=== PATIENT | female | born 1990 | race Caucasian/White ===

== ENCOUNTER 2021-04-27 07:35 | Emergency (ER) | payer OTHER, SELFPAY ==
--- NOTE | ~2021-04-27 | CT_ITS ---
EXAMINATION: CT ANGIOGRAM OF THE CHEST WITH AND WITHOUT CONTRAST (CT PULMONARY ANGIOGRAM FOR PE) CLINICAL INFORMATION: Reason for Exam right sided pleuritic cp, r/o pe COMPARISON: None TECHNIQUE: Prior to contrast administration, noncontrast localization images were obtained. Subsequently, multidetector volumetric imaging was performed from the thoracic inlet to below the diaphragms following the administration of 65 mL Omnipaque 350 intravenous contrast. No contrast reaction reported Sagittal, coronal, and MIP oblique sagittal reformatted images were obtained on the CT workstation, uploaded to PACS, and reviewed. This CT examination was performed using dose optimization techniques as appropriate, variously including the following: *Automated exposure control *Adjustment of mA and/or kV according to patient size (this includes techniques or standardized protocols for targeted exams where dose is matched to indication/reason for exam; i.e. extremities or head) *Use of iterative reconstruction technique Total exam dose-length product 187 mGy-cm FINDINGS: QUALITY OF STUDY/CONTRAST BOLUS: Satisfactory. PULMONARY ARTERIES: No central or segmental pulmonary emboli. THORACIC AORTA: No aneurysm or dissection. LUNG: No focal consolidation, nodules or masses. Mild posterior dependent right basilar atelectasis. PLEURA: No pleural effusion or pneumothorax. MEDIASTINUM: Normal heart size. No pericardial effusion. No hilar or mediastinal lymphadenopathy. No evidence of septal bowing or right heart strain. CHEST WALL/AXILLA: No axillary or internal mammary lymphadenopathy. OSSEOUS STRUCTURES: No acute or suspicious osseous abnormality. UPPER ABDOMEN: Unremarkable. No reflux of contrast into the hepatic veins to suggest elevated right heart pressures. CT/CT angio chest PE protocol IMPRESSION: No pulmonary embolism. VTE: negative
--- NOTE | ~2021-04-27 | US_ITS ---
EXAMINATION: US ABDOMEN LIMITED CLINICAL INFORMATION: Right upper quadrant pain. COMPARISON: None TECHNIQUE: Real-time imaging of the right upper quadrant abdominal viscera. FINDINGS: PANCREAS: The visualized portion of the pancreas head and body are normal, portion of the pancreatic body and tail, not visualized are obscured by bowel gas. LIVER: Normal. The liver is normal in size. The liver contour is normal. Parenchymal echogenicity is normal. No focal hepatic lesion. There is no intrahepatic biliary duct dilatation seen. GALLBLADDER: Normal. The gallbladder is physiologically distended without evidence of stones, sludge, polyps, wall thickening or pericholecystic fluid. COMMON BILE DUCT: Normal in caliber measuring 0.3 cm in diameter. RIGHT KIDNEY: Normal. No hydronephrosis. No renal calculi or focal parenchymal lesions. The kidney measures 11.2 cm in maximum dimension. FREE FLUID: None. US/US abdomen limited IMPRESSION: No ultrasound evidence of gallbladder disease or gallstones, no ultrasound explanation for patient's pain symptoms.
--- NOTE | ~2021-04-27 | XR_ITS ---
EXAMINATION: XR CHEST CLINICAL INFORMATION: Right chest wall/breast pain COMPARISON: None TECHNIQUE: 2 views of the chest were obtained. FINDINGS: No focal consolidation, pulmonary edema, or pleural effusion. Normal cardiomediastinal silhouette. XR/XR chest 2V IMPRESSION: Normal chest.
[2021-04-27 08:10] VITALS: BP 131/74; PULSE 84; RESP 16; TEMP 36.9; O2SAT 100; BMI 26.7
--- NOTE | 2021-04-27 08:18 | ECG_ITS ---
Test Reason : CP Blood Pressure : / mmHG Vent. Rate : 072 BPM Atrial Rate : 072 BPM P-R Int : 146 ms QRS Dur : 084 ms QT Int : 368 ms P-R-T Axes : 074 061 043 degrees QTc Int : 402 ms Normal sinus rhythm Normal ECG No previous ECGs available Referred By: Monique Antony Electronically Signed By:RAKESH DIXON
--- NOTE | 2021-04-27 08:34 | ED.CHESTPAIN ---
HPI - Chest Pain General Chief Complaint: Chest Pain Stated Complaint: FLANK PAIN Time Seen by Provider: 04/27/21 08:18 Source: patient Mode of arrival: ambulatory Limitations: no limitations History of Present Illness HPI narrative: 31 yo female previously Healthy here with complaints of right upper abdominal pain/right chest pain since last evening. Pain is worsened with deep breathing and movement. No shortness of breath, cough, fevers, chills. No leg swelling or pain. No OCP use. No recent travel or sick contacts. No family history of PE or DVT. No nausea, vomiting, diarrhea or urinary symptoms. Related Data Previous Rx's Medication Instructions Recorded omeprazole 20 mg PO DAILY #30 cap 04/27/21 Allergies Allergy/AdvReac Type Severity Reaction Status Date / Time Penicillins Allergy Mild RASH Unverified 07/04/20 17:16 Review of Systems Review of Systems: Yes all other systems are reviewed and are negative Constitutional: Constitutional: Reports no additional constitutional complaints, Denies body ache(s), Denies chills, Denies fever(s), Denies headache(s) and Denies weakness Eyes: Eyes: Reports no additional eye complaints and Denies change in vision ENT: Reports system reviewed and no additional complaints, except as documented, Denies dizziness, Denies headache(s), Denies nasal congestion, Denies nasal discharge and Denies neck pain Cardiovascular: Cardiovascular: Reports no additional cardiovascular complaints, Reports chest pain, Denies leg edema and Denies dyspnea Respiratory: Respiratory: Reports no additional respiratory complaints, Denies cough and Denies dyspnea Gastrointestinal: Gastrointestinal: Reports no additional gastrointestinal complaints, Reports abdominal pain, Denies diarrhea, Denies nausea and Denies vomiting Genitourinary: Genitourinary: Reports no additional female genitourinary complaints and Denies urinary incontinence Musculoskeletal: Musculoskeletal: Reports no additional musculoskeletal complaints, Denies back pain, Denies arthralgias, Denies joint swelling, Denies neck pain, Denies numbness and Denies tingling Integumentary/Breasts: Skin/Breast: Reports system reviewed and no additional complaints, except as docu and Denies rash Neurologic: Reports system reviewed and no additional complaints, except as documented, Denies Abnormal speech present, Denies dizziness, Denies headache(s), Denies numbness, Denies tingling and Denies weakness [facility] Past Medical History Attestation statement: The following information was validated with the patient. Source: old records reviewed and nursing notes reviewed Medical History No known health problems Social History Social History Alcohol intake: never Patient Tobacco Use Status: Never used Tobacco Use of substances other than those prescribed or required for medical reasons: Yes Substance Use Type: Marijuana Substance Use Frequency: Daily Substance Use Frequency Other:: yesterday Advance Directives: Yes Advance Directives Information Provided: Yes Advance Directives on File: No Patient : No Physical Exam Vital Signs: Vital Signs: Last Vital Signs Temp 97.6 F 04/27/21 12:31 Pulse 80 04/27/21 12:31 Resp 18 04/27/21 12:31 BP 105/63 04/27/21 12:31 Pulse Ox 100 04/27/21 12:31 Body Mass Index 26.7 Const: General: cooperative, healthy appearing, comfortable and no acute distress Orientation/consciousness: patient oriented x3 Limitations: no limitations HENMT: Head: Yes normal to inspection Ears: hearing grossly normal bilaterally General nose exam: Normal external nose present Face and sinus: Yes normal facial exam Mouth: Normal oral and palatal mucosa present Throat: Yes posterior oropharynx normal Eyes: General: appearance normal, both eyes and all related structures Pupils: Equal, round and reactive pupils present Neck: Neck: Yes normal visual inspection Chest: Other: To the right chest wall and over the right lateral ribs there is mild tenderness with no crepitus, ecchymosis or deformity. Pain is worsened with right arm movement and palpation and deep breathing. Chest palpation & inspection: normal inspection of the chest Resp: Effort & Inspection: normal respiratory effort Auscultation: clear to auscultation bilaterally Cardio: Rate: regular rate Rhythm: regular rhythm Peripheral pulses: Peripheral pulses 2+ throughout GI: Inspection: Yes normal to inspection Palpation (GI): Soft to palpation and Tenderness to palpation present (GI) (Mild right upper quadrant. No rebound or guarding) Auscultation: normal bowel sounds : General: Yes no CVA tenderness Back/Spine/Pelvis: Back: no CVA tenderness Thoracic/Lumbar Spine: thoracic and lumbar spine normal to inspection Skin: General skin exam: no rashes or lesions noted Neuro: General: patient oriented x3, no focal motor deficits and normal sensation to monofilament Cranial nerves: Yes Equal, round and reactive pupils present Cognition (Neuro): normal cognition Speech: No Abnormal speech present Gait exam (Neuro): Normal gait present Motor exam (neuro): 5/5 motor strength present throughout Extrem: General: Yes normal to inspection, Yes no pedal edema and Yes no calf tenderness Course Course Course Narrative: 31-year-old female here with complaints of right-sided chest wall pain and right upper abdominal pain since last evening with no other associated symptoms. On exam she does have some tenderness over the chest wall which is very reproducible as well as some right upper quadrant abdominal pain with no rebound or guarding. Will check labs, EKG, chest x-ray, abdominal ultrasound 1000-chest x-ray shows no acute finding. EKG and troponin negative. Abdominal ultrasound negative for acute cholecystitis. All other labs are unremarkable. UA is negative. She does have a mild leukocytosis but this actually improved from her previous CBC. Went to re-evaluate the patient and she is continuing to complain of severe right sided chest pain worsened with deep breathing. States feels like gas. Add on d dimer, GI cocktail. 1100-unfortunately the patient's D-dimer is elevated. Will check CTA to r/o PE. 1245-CT negative for PE. Patient is feeling improved after receiving a GI cocktail. All symptoms are resolved. Likely chest wall strain versus underlying GERD. Will send home with supportive care. Reviewed worrisome signs and symptoms and when to return to the emergency department. Comfortable discharge home. MDM - Chest Pain MDM Narrative Medical decision making narrative: Costochondritis, chest wall strain, PE, acute cholecystitis, renal colic, pyelo Less likely PE With PERC score 0. Medical Records Data Attestation: I reviewed the patient's medical records. Lab Data Attestation: I reviewed the patient's lab results. Result diagrams: 04/27/21 09:14 04/27/21 09:14 Labs: Lab Results 04/27/21 04/27/21 04/27/21 Range/Units 09:14 09:14 09:14 WBC 13.8 H (4.8-10.8) X10*3/uL RBC 3.60 L (4.20-5.50) X10*6/uL Hgb 10.8 L (12.0-16.0) g/dl Hct 34.2 L (37-47) % MCV 95.0 (80-98) fL MCH 30.0 (27.0-33.0) pg MCHC 31.6 (31.0-35.0) g/dl RDW 12.3 (11.0-16.0) % Plt Count 285 (160-400) X10*3/uL MPV 9.7 (9.4-12.3) fL Immature Gran % (Auto) 0.4 (0.0-0.4) % Neut % (Auto) 75.7 H (45-73) % Lymph % (Auto) 16.4 L (20-40) % [place] % (Auto) 6.4 (2-11) % Eos % (Auto) 0.7 (0-4) % Baso % (Auto) 0.4 (0-2) % Lymph # (Auto) 2.3 (1.2-4.9) X10*3/uL [place] # (Auto) 0.9 (0.1-1.2) X10*3/uL Eos # (Auto) 0.1 (0.0-0.4) X10*3/uL Baso # (Auto) 0.1 (0.0-0.2) X10*3/uL Abs Immat Gran (auto) 0.05 H (0.00-0.03) X10*3/uL Absolute Neuts (auto) 10.5 H (2.0-8.3) X10*3/uL Absolute Nucleated RBC 0.000 (0.0-0.012) X10*3/uL Nucleated RBC % (auto) 0.0 (0.0-0.2) /100WBC PT (9.9-13.0) SEC INR (0.9-1.1) D-Dimer NG/ML Sodium 139 (135-145) mmol/L Potassium 4.1 (3.3-5.1) mmol/L Chloride 108 (96-108) mmol/L Carbon Dioxide 23 (22-29) mmol/L Anion Gap 12 (12-20) BUN 12 (9-16) mg/dL Creatinine 0.73 (0.5-1.4) mg/dL Estim Creat Clear Calc 107.7 Estimated GFR > 60 Random Glucose 98 (60-115) mg/dL Calcium 9.3 (8.4-10.2) mg/dL Magnesium 1.7 (1.6-2.6) mg/dL Total Bilirubin 0.4 (0.0-1.0) mg/dL Direct Bilirubin 0.2 (0.0-0.5) mg/dL AST 13 (5-31) U/L ALT 6 (0-31) U/L Alkaline Phosphatase 75 (39-117) U/L Troponin I High Sens < 3.5 (<3.5-17.0) ng/L Total Protein 7.1 (6.5-8.0) g/dL Albumin 4.2 (3.5-5.0) g/dL Urine Color Urine Appearance Urine pH (5.0-8.0) Ur Specific [place] (1.005-1.025) Urine Protein (NEG-TRACE) MG/DL Urine Glucose (UA) (NEG) MG/DL Urine Ketones (NEG) MG/DL Urine Blood (NEG) Urine Nitrite (NEG) Ur Leukocyte Esterase (NEG) Urine RBC (0) /HPF Urine WBC (0-4) /HPF Ur Squamous Epith Cells /LPF Urine Bacteria /LPF Urine Test (NEGATIVE) 04/27/21 04/27/21 04/27/21 Range/Units 09:14 09:14 10:28 WBC (4.8-10.8) X10*3/uL RBC (4.20-5.50) X10*6/uL Hgb (12.0-16.0) g/dl Hct (37-47) % MCV (80-98) fL MCH (27.0-33.0) pg MCHC (31.0-35.0) g/dl RDW (11.0-16.0) % Plt Count (160-400) X10*3/uL MPV (9.4-12.3) fL Immature Gran % (Auto) (0.0-0.4) % Neut % (Auto) (45-73) % Lymph % (Auto) (20-40) % [place] % (Auto) (2-11) % Eos % (Auto) (0-4) % Baso % (Auto) (0-2) % Lymph # (Auto) (1.2-4.9) X10*3/uL [place] # (Auto) (0.1-1.2) X10*3/uL Eos # (Auto) (0.0-0.4) X10*3/uL Baso # (Auto) (0.0-0.2) X10*3/uL Abs Immat Gran (auto) (0.00-0.03) X10*3/uL Absolute Neuts (auto) (2.0-8.3) X10*3/uL Absolute Nucleated RBC (0.0-0.012) X10*3/uL Nucleated RBC % (auto) (0.0-0.2) /100WBC PT 11.9 (9.9-13.0) SEC INR 1.0 (0.9-1.1) D-Dimer 269 NG/ML Sodium (135-145) mmol/L Potassium (3.3-5.1) mmol/L Chloride (96-108) mmol/L Carbon Dioxide (22-29) mmol/L Anion Gap (12-20) BUN (9-16) mg/dL Creatinine (0.5-1.4) mg/dL Estim Creat Clear Calc Estimated GFR Random Glucose (60-115) mg/dL Calcium (8.4-10.2) mg/dL Magnesium (1.6-2.6) mg/dL Total Bilirubin (0.0-1.0) mg/dL Direct Bilirubin (0.0-0.5) mg/dL AST (5-31) U/L ALT (0-31) U/L Alkaline Phosphatase (39-117) U/L Troponin I High Sens (<3.5-17.0) ng/L Total Protein (6.5-8.0) g/dL Albumin (3.5-5.0) g/dL Urine Color YELLOW Urine Appearance HAZY Urine pH 6.0 (5.0-8.0) Ur Specific [place] 1.020 (1.005-1.025) Urine Protein NEG (NEG-TRACE) MG/DL Urine Glucose (UA) NEG (NEG) MG/DL Urine Ketones NEG (NEG) MG/DL Urine Blood 3+ H (NEG) Urine Nitrite NEG (NEG) Ur Leukocyte Esterase NEG (NEG) Urine RBC 50-75 H (0) /HPF Urine WBC 0-2 (0-4) /HPF Ur Squamous Epith Cells TRACE /LPF Urine Bacteria NONE /LPF Urine Test NEGATIVE (NEGATIVE) Imaging Data Chest x-ray: Attestation: I personally reviewed and interpreted this imaging study as follows: Radiologist's impression: EXAMINATION: XR CHEST CLINICAL INFORMATION: Right chest wall/breast pain COMPARISON: None TECHNIQUE: 2 views of the chest were obtained. FINDINGS: No focal consolidation, pulmonary edema, or pleural effusion. Normal cardiomediastinal silhouette. XR/XR chest 2V IMPRESSION: Normal chest. US - abdomen: Attestation: I personally reviewed and interpreted this imaging study as follows: Radiologist's impression: FINDINGS: PANCREAS: The visualized portion of the pancreas head and body are normal, portion of the pancreatic body and tail, not visualized are obscured by bowel gas. LIVER: Normal. The liver is normal in size. The liver contour is normal. Parenchymal echogenicity is normal. No focal hepatic lesion. There is no intrahepatic biliary duct dilatation seen. GALLBLADDER: Normal. The gallbladder is physiologically distended without evidence of stones, sludge, polyps, wall thickening or pericholecystic fluid. COMMON BILE DUCT: Normal in caliber measuring 0.3 cm in diameter. RIGHT KIDNEY: Normal. No hydronephrosis. No renal calculi or focal parenchymal lesions. The kidney measures 11.2 cm in maximum dimension. FREE FLUID: None. US/US abdomen limited IMPRESSION: No ultrasound evidence of gallbladder disease or gallstones, no ultrasound explanation for patient's pain symptoms. CT scan - chest: Attestation: I personally reviewed and interpreted this imaging study as follows: Radiologist's impression: FINDINGS: QUALITY OF STUDY/CONTRAST BOLUS: Satisfactory. PULMONARY ARTERIES: No central or segmental pulmonary emboli. THORACIC AORTA: No aneurysm or dissection. LUNG: No focal consolidation, nodules or masses. Mild posterior dependent right basilar atelectasis. PLEURA: No pleural effusion or pneumothorax. MEDIASTINUM: Normal heart size. No pericardial effusion. No hilar or mediastinal lymphadenopathy. No evidence of septal bowing or right heart strain. CHEST WALL/AXILLA: No axillary or internal mammary lymphadenopathy. OSSEOUS STRUCTURES: No acute or suspicious osseous abnormality. UPPER ABDOMEN: Unremarkable. No reflux of contrast into the hepatic veins to suggest elevated right heart pressures. CT/CT angio chest PE protocol IMPRESSION: No pulmonary embolism. VTE: negative ECG Data ECG #1: Attestation: I personally reviewed and interpreted this ECG as follows: ECG interpretation date: 04/27/21 ECG interpretation time: 08:40 Interpretation: Normal sinus rhythm with a rate of 72, normal MS, normal QRS, normal QT Discharge Plan Discharge Clinical Impression: GERD without esophagitis Chest wall muscle strain Qualifiers: Encounter type: initial encounter Qualified Code(s): S29.011A - Strain of muscle and tendon of front wall of thorax, initial encounter Patient Disposition: Home, Self-Care Instructions: Gastroesophageal Reflux Disease (ED), Chest Wall Pain (ED) Additional Instructions: [place] diet Prescriptions: New omeprazole 20 mg capsule,delayed release(DR/EC) 20 mg PO DAILY Qty: 30 RF: 0 Referrals: Brian Paul MD [Primary Care Provider] - 2 days Stand Alone Forms: Work/School Release
[2021-04-27 09:19] LABS: MANUAL DIFF FLAG NO
[2021-04-27 09:20] LABS: Basophils Absolute Auto 0.1 X10*3/uL (0.0-0.2); Basophils Percent Auto 0.4 % (0-2); Eosinophils Absolute Auto 0.1 X10*3/uL (0.0-0.4); Eosinophils Percent Auto 0.7 % (0-4); Hematocrit 34.2 % (37-47); Hemoglobin 10.8 g/dl (12.0-16.0); Imm Gran Abs Auto 0.05 X10*3/uL (0.00-0.03); Imm Gran Pct Auto 0.4 % (0.0-0.4); Lymphocytes Absolute Auto 2.3 X10*3/uL (1.2-4.9); Lymphocytes Percent Auto 16.4 % (20-40); Mean Corpuscular HGB Conc 31.6 g/dl (31.0-35.0); Mean Platelet Volume 9.7 fL (9.4-12.3); Monocytes Absolute Auto 0.9 X10*3/uL (0.1-1.2); Monocytes Percent Auto 6.4 % (2-11); Neutrophils Absolute Auto 10.5 X10*3/uL (2.0-8.3); Neutrophils Percent Auto 75.7 % (45-73); Platelet Count 285 X10*3/uL (160-400); Red Cell Distribution Width 12.3 % (11.0-16.0); White Blood Count 13.8 X10*3/uL (4.8-10.8)
[2021-04-27 09:21] LABS: Glucose Urine UA NEG (NEG); Leukocyte Esterase Urine NEG (NEG); Nitrite Urine NEG (NEG); Urine Blood 3+ (NEG); Urine Ketones NEG (NEG); Urine Protein NEG (NEG-TRACE)
[2021-04-27 09:22] LABS: Appearance Urine HAZY; Color Urine YELLOW
[2021-04-27 09:23] LABS: UPreg QC Valid YES; Urine Pregnancy NEGATIVE (NEGATIVE)
[2021-04-27 09:27] VITALS: PULSE 78
[2021-04-27 09:28] LABS: RBC Urine 50-75 /HPF (0); Squamous Epithelial Cell Urine TRACE /LPF; WBC Urine 0-2 /HPF (0-4)
[2021-04-27] MEDS: Ketorolac Tromethamine 30 MG/ML VIAL IVPUSH (09:32)
[2021-04-27 09:43] LABS: Alanine Aminotransferase 6 U/L (0-31); Albumin Level 4.2 g/dL (3.5-5.0); Alkaline Phosphatase 75 U/L (39-117); Anion Gap 12 (12-20); Aspartate Amino Transferase 13 U/L (5-31); Bilirubin Direct 0.2 mg/dL (0.0-0.5); Bilirubin Total 0.4 mg/dL (0.0-1.0); Blood Urea Nitrogen 12 mg/dL (9-16); Calcium 9.3 mg/dL (8.4-10.2); Carbon Dioxide 23 mmol/L (22-29); Chloride 108 mmol/L (96-108); Creatinine Clr Calc Pharmacy 107.7; Estimated Glomerular Filt Rate > 60; Glucose Random 98 mg/dL (60-115); Magnesium 1.7 mg/dL (1.6-2.6); Potassium 4.1 mmol/L (3.3-5.1); Sodium 139 mmol/L (135-145); Total Protein 7.1 g/dL (6.5-8.0)
[2021-04-27 09:46] LABS: Troponin-I High Sensitivity < 3.5 ng/L (<3.5-17.0)
[2021-04-27 10:14] VITALS: BP 100/60; PULSE 82; RESP 20; TEMP 36.9; O2SAT 100
[2021-04-27 10:15] VITALS: RESP 20
[2021-04-27] MEDS: Lidocaine HCl Viscous 2 % 15 ML SOLUTION MUCOUS MEM (10:16)
[2021-04-27] MEDS: Magnesium Hydrox/Alum Hydrox 30 ML ORAL.SUSP PO (10:16)
[2021-04-27 10:43] LABS: Prothrombin Time 11.9 SEC (9.9-13.0)
[2021-04-27 10:46] LABS: D Dimer 269 NG/ML
[2021-04-27 11:44] VITALS: BP 98/53; PULSE 80; RESP 16; O2SAT 98
[2021-04-27] MEDS: iohexoL 350 MG/ML 100 ML INFUS..BTL IV (12:19)
[2021-04-27 12:31] VITALS: BP 105/63; PULSE 80; RESP 18; TEMP 36.4; O2SAT 100
== END 2021-04-27 13:00 | disposition home or self-care (01) ==
PROVIDERS: Nurse Practitioner Family; Emergency Provider Emergency Medicine; PCP Internal Medicine
DX: K21.9 Gastro-esophageal reflux disease without esophagitis (principal); S29.011A Strain of muscle and tendon of front wall of thorax, initial encounter; X58.XXXA Exposure to other specified factors, initial encounter; F12.90 Cannabis use, unspecified, uncomplicated; Y93.9 Activity, unspecified; Y92.9 Unspecified place or not applicable; Y99.9 Unspecified external cause status
CPT/HCPCS: 36415; 71046; 71275; 76705; 80048; 80076; 81001; 81025; 83735; 84484; 85025; 85379; 85610; 93005; 96374; 99285; J1885; Q9967

== ENCOUNTER 2021-07-23 10:33 | Emergency (ER) | payer OTHER, SELFPAY | END 2021-07-23 12:42 | disposition left against medical advice (07) | LOC: HO.ED 12:43 | PROVIDERS: Emergency Provider Emergency Medicine; PCP Internal Medicine | DX: O21.9 Vomiting of pregnancy, unspecified (principal); Z3A.00 Weeks of gestation of pregnancy not specified ==

== ENCOUNTER 2022-02-18 08:49 | Emergency (ER) | payer OTHER, SELFPAY ==
--- NOTE | ~2022-02-18 | CT_ITS ---
EXAMINATION: CTA OF THE HEAD AND NECK CLINICAL INFORMATION: Left-sided headache and neck pain. Left facial droop. COMPARISON: None. TECHNIQUE: Test bolus sequences followed by intravenous administration 70 mL of Omnipaque 350. Helical imaging was performed in the axial plane from the mediastinum to the skull vertex. Delayed postcontrast imaging of the head was also performed. The data was processed at the mri technologist's workstation for generation of MIP sequences. Three-dimensional volume rendered reformatted images were also generated at an offline 3-D workstation. Stenoses are assessed in accordance with NASCET criteria unless otherwise indicated. This CT examination was performed using dose optimization techniques as appropriate, variously including the following: *Automated exposure control *Adjustment of mA and/or kV according to patient size (this includes techniques or standardized protocols for targeted exams where dose is matched to indication/reason for exam; i.e. extremities or head) *Use of iterative reconstruction technique DLP: 2423 mGy-cm. FINDINGS: CT head: There is no evidence of acute intracranial hemorrhage or territorial infarction. There is no loss of jacobo to white matter differentiation. No abnormal mass effect or midline shift is seen. No extra-axial fluid collections are identified. There is no abnormal enhancement. The ventricles are normal in size. There is no abnormal attenuation within the brain parenchyma. The osseous structures and soft tissues are normal. Mild right mastoid effusion noted. There is a small fluid level in the dependent left sphenoid sinus cavity. CTA neck: The imaged aortic arch and origins of the great vessels are normal. The common carotid arteries are widely patent. The carotid bifurcations are normal. The cervical internal carotid arteries are normal. The vertebral arteries opacify normally and are of normal caliber. Small nodule visible in the left thyroid lobe. The imaged portions of the lungs are clear. CTA head: The intradural vertebral arteries and basilar artery are normal. The posterior cerebral arteries are widely patent. The internal carotid arteries are of normal caliber. The [place] and MCA vascular complexes bilaterally are normal. The venous sinuses opacify normally. CT/CT angio head neck IMPRESSION: No acute process. Normal CT angiogram of the head and neck. Nonspecific small fluid level in the left sphenoid sinus cavity. Mild right mastoid effusion. Imaging findings reported to Dr. Goel at 12:45 PM on 02/18/2022.
[2022-02-18 08:59] VITALS: BP 135/81; PULSE 78; RESP 16; TEMP 36.6; O2SAT 100; BMI 27.4
--- NOTE | 2022-02-18 09:19 | ECG_ITS ---
Test Reason : headache Blood Pressure : / mmHG Vent. Rate : 070 BPM Atrial Rate : 070 BPM P-R Int : 148 ms QRS Dur : 070 ms QT Int : 376 ms P-R-T Axes : 061 052 035 degrees QTc Int : 406 ms Normal sinus rhythm with sinus arrhythmia Normal ECG When compared with ECG of 27-APR-2021 08:40, No significant change was found Referred By: Araceli Goel Electronically Signed By:Dexter Ivy
[2022-02-18 09:22] VITALS: BP 130/76; PULSE 75; RESP 20; TEMP 36.7; O2SAT 100
--- NOTE | 2022-02-18 09:24 | ED.NEUROSD ---
HPI - Neuro Symptoms/Deficit General Chief Complaint: General Medical Stated Complaint: l side facial numbness twisted to side Time Seen by Provider: 02/18/22 09:08 Source: patient Mode of arrival: ambulatory Limitations: no limitations History of Present Illness HPI Narrative: L sided neck and occipital headache for 2 days no trauma no chiropractor interventions no OCPs. She notes yesterday she was brushing her teeth and noted the left side of her tongue went numb, also noted she was drooling and had drooping to left side. She notes now that her left eye won't close. She has no hx of prior events or cold sores. Onset (ago): day(s) (yesterday after work) Location: speech and left face History of same: No Severity: moderate Quality: weak, numb and other (worsening) Relieving factors: none Exacerbating factors: rest Context: sudden onset On Anticoagulants: No Associated symptoms: headaches Treatments Prior to Arrival: none Related Data Previous Rx's Medication Instructions Recorded omeprazole 20 mg capsule,delayed 20 mg PO DAILY #30 cap 04/27/21 release azithromycin 250 mg tablet See Rx Instructions PO .COMPLEX #6 02/18/22 tab prednisone 20 mg tablet 60 mg PO DAILY 5 Days #15 tab 02/18/22 valacyclovir 1 gram tablet 1,000 mg PO TID 7 Days #21 tab 02/18/22 Allergies Allergy/AdvReac Type Severity Reaction Status Date / Time Penicillins Allergy Mild RASH Unverified 07/04/20 17:16 Review of Systems Review of Systems: Constitutional : No Fever, No Chills, No Fatigue ENT/Mouth : No sore throat, No Rhinorrhea Eyes: No Eye Pain, No Swelling, No Redness Cardiovascular : No Chest Pain, No SOB, No Dyspnea on Exertion Respiratory : No Cough, No Sputum Gastrointestinal : No Nausea, No Vomiting, No Diarrhea, No abdominal Pain Genitourinary : No Dysuria, No Urinary Frequency, No Hematuria, Musculoskeletal : No joint pain, No Myalgias, No Joint Swelling Skin : No Skin Lesions, No rash Neuro : pos Weakness, pos Numbness, No Dizziness, positive Headache Psych : No Anxiety/Panic, No Depression Heme/Lymph: No Bruising, No Bleeding,No Lymphadenopathy Endocrine : No Polyuria, No Polydipsia All other systems reviewed and are negative [facility] Past Medical History Attestation statement: The following information was validated with the patient. Medical History No known health problems Social History Social History Alcohol intake: current Alcohol intake frequency: a few times a week Alcohol type: wine Patient Tobacco Use Status: Never used Tobacco Use of substances other than those prescribed or required for medical reasons: Yes Substance Use Type: Marijuana Substance Use Frequency: Daily Advance Directives: No Advance Directives Information Provided: No Patient : No Physical Exam Vital Signs: Vital Signs: Last Vital Signs Temp 98.0 F 02/18/22 09:22 Pulse 94 02/18/22 11:53 Resp 11 L 02/18/22 11:53 BP 98/57 L 02/18/22 11:53 Pulse Ox 100 02/18/22 11:53 BMI result Body Mass Index 27.4 Appearance: Alert. Oriented X3. No acute distress. Eyes: Pupils equal, round and reactive to light. cannot fully close L eye ENT: Pharynx normal. normal TMs Neck: Normal inspection. Neck supple. CVS: Normal heart rate and rhythm. Pulses normal. Respiratory: No respiratory distress. Breath sounds normal. Abdomen: Soft and nontender. Skin: Skin warm and dry. Normal skin color. Normal skin turgor. Extremities: No lower extremity edema. No calf ttp Neuro: Oriented X 3. mild L sided facial droop - mouth to eyelid area otherwise No motor deficit. No sensory deficit. Course Course Course Narrative: L eye now not really closing has progressed CTA normal suspect bells palsy - at this time will start on steroids, anti virals and abx given sphenoid sinus ds MDM - Neuro Symptoms/Deficit MDM Narrative Medical decision making narrative: 32 yo female no sig PMH here with progressive L sided facial droop progressing to her eye at this time no OCPs or prior history at this time will need labs, EKG, CTA head /neck for stroke dissection though given the progression and sysmptoms I suspect this is more peripheral and likely bells palsy. Lab Data Result diagrams: 02/18/22 09:46 02/18/22 09:46 Labs: Lab Results 02/18/22 02/18/22 02/18/22 Range/Units 09:46 09:46 09:46 WBC 9.1 (4.8-10.8) X10*3/uL RBC 4.20 (4.20-5.50) X10*6/uL Hgb 12.7 (12.0-16.0) g/dl Hct 39.4 (37.0-47.0) % MCV 93.8 (80.0-98.0) fL MCH 30.2 (27.0-33.0) pg MCHC 32.2 (31.0-35.0) g/dl RDW 12.1 (11.0-16.0) % Plt Count 288 (160-400) X10*3/uL MPV 9.3 L (9.4-12.3) fL Immature Gran % (Auto) 0.3 (0.0-0.4) % Neut % (Auto) 65.1 (45-73) % Lymph % (Auto) 27.2 (20-40) % [place] % (Auto) 6.1 (2-11) % Eos % (Auto) 1.0 (0-4) % Baso % (Auto) 0.3 (0-2) % Lymph # (Auto) 2.5 (1.2-4.9) X10*3/uL [place] # (Auto) 0.6 (0.1-1.2) X10*3/uL Eos # (Auto) 0.1 (0.0-0.4) X10*3/uL Baso # (Auto) 0.0 (0.0-0.2) X10*3/uL Abs Immat Gran (auto) 0.03 (0.00-0.03) X10*3/uL Absolute Neuts (auto) 5.9 (2.0-8.3) x10*3/uL Absolute Nucleated RBC 0.000 (0.0-0.012) X10*3/uL Nucleated RBC % (auto) 0.0 (0.0-0.2) /100WBC ESR 5 (0-20) MM/HR PT (9.9-13.0) SEC INR (0.9-1.1) Sodium 138 (135-145) mmol/L Potassium 4.1 (3.3-5.1) mmol/L Chloride 106 (96-108) mmol/L Carbon Dioxide 25 (22-29) mmol/L Anion Gap 11 L (12-20) BUN 7 L (9-16) mg/dL Creatinine 0.68 (0.5-1.4) mg/dL Estim Creat Clear Calc 115.9 Estimated GFR > 60 Random Glucose 90 (60-115) mg/dL Calcium 9.7 (8.4-10.2) mg/dL Magnesium 1.7 (1.6-2.6) mg/dL Total Bilirubin 0.9 (0.0-1.0) mg/dL Direct Bilirubin 0.3 (0.0-0.5) mg/dL AST 20 D (5-31) U/L ALT 13 (0-31) U/L Alkaline Phosphatase 82 (39-117) U/L C-Reactive Protein 0.42 (< or = 0.50) mg/dL Total Protein 7.9 (6.5-8.0) g/dL Albumin 4.5 (3.5-5.0) g/dL TSH (0.32-4.0) uIU/mL Beta HCG, Quant mIU/mL 02/18/22 02/18/22 Range/Units 09:46 09:46 WBC (4.8-10.8) X10*3/uL RBC (4.20-5.50) X10*6/uL Hgb (12.0-16.0) g/dl Hct (37.0-47.0) % MCV (80.0-98.0) fL MCH (27.0-33.0) pg MCHC (31.0-35.0) g/dl RDW (11.0-16.0) % Plt Count (160-400) X10*3/uL MPV (9.4-12.3) fL Immature Gran % (Auto) (0.0-0.4) % Neut % (Auto) (45-73) % Lymph % (Auto) (20-40) % [place] % (Auto) (2-11) % Eos % (Auto) (0-4) % Baso % (Auto) (0-2) % Lymph # (Auto) (1.2-4.9) X10*3/uL [place] # (Auto) (0.1-1.2) X10*3/uL Eos # (Auto) (0.0-0.4) X10*3/uL Baso # (Auto) (0.0-0.2) X10*3/uL Abs Immat Gran (auto) (0.00-0.03) X10*3/uL Absolute Neuts (auto) (2.0-8.3) x10*3/uL Absolute Nucleated RBC (0.0-0.012) X10*3/uL Nucleated RBC % (auto) (0.0-0.2) /100WBC ESR (0-20) MM/HR PT 12.2 (9.9-13.0) SEC INR 1.1 (0.9-1.1) Sodium (135-145) mmol/L Potassium (3.3-5.1) mmol/L Chloride (96-108) mmol/L Carbon Dioxide (22-29) mmol/L Anion Gap (12-20) BUN (9-16) mg/dL Creatinine (0.5-1.4) mg/dL Estim Creat Clear Calc Estimated GFR Random Glucose (60-115) mg/dL Calcium (8.4-10.2) mg/dL Magnesium (1.6-2.6) mg/dL Total Bilirubin (0.0-1.0) mg/dL Direct Bilirubin (0.0-0.5) mg/dL AST (5-31) U/L ALT (0-31) U/L Alkaline Phosphatase (39-117) U/L C-Reactive Protein (< or = 0.50) mg/dL Total Protein (6.5-8.0) g/dL Albumin (3.5-5.0) g/dL TSH 0.92 (0.32-4.0) uIU/mL Beta HCG, Quant < 2 mIU/mL ECG Data Attestation: I personally reviewed and interpreted this ECG as follows: ECG interpretation date: 02/18/22 ECG interpretation time: 09:43 Interpretation: Rate: 70 Rhythm: NSR [place]: normal Normal P waves. Normal [place]VAL[place]. Normal QRS complex. ST T wave : normal no TRINI qTC: normal prior studies: no acute ischemia The study has been interpreted contemporaneously by me. Discharge Plan Discharge Clinical Impression: Jeronimo's palsy Sinusitis Qualifiers: Sinusitis location: sphenoidal Chronicity: acute Recurrence: non-recurrent Qualified Code(s): J01.30 - Acute sphenoidal sinusitis, unspecified Patient Disposition: Home, Self-Care Instructions: Sinusitis (ED), Jeronimo Palsy (ED) Additional Instructions: return to ED for any worsening symptoms or concerns tape eye shut at night if it won't close keep eye moistened Prescriptions: New prednisone 20 mg tablet 60 mg PO DAILY 5 Days Qty: 15 0RF valacyclovir 1 gram tablet 1,000 mg PO TID 7 Days Qty: 21 0RF azithromycin 250 mg tablet See Rx Instructions PO .COMPLEX Qty: 6 0RF Rx Instructions: For 250 mg dose pack: take 500 mg today (day 1), then 250 mg for 4 days (days 2-5) No Action omeprazole 20 mg capsule,delayed release(DR/EC) 20 mg PO DAILY Qty: 30 0RF Referrals: Brian Paul III, MD [Primary Care Provider] - 1 week Stand Alone Forms: Work/School Release
--- NOTE | 2022-02-18 09:28 | PC.NURSE ---
pt a&ox3, vss, pt c/o headache on the left posterior side of head for 3 days, left sided facial droop, some numbness and tingling on left side of face and left upper extremity. pt has equally strength bilateral upper and lower extremities, pt endorsed difficulty tightly closing left eye and smiling, no facial droop noted in room. pt reports hx of similar headaches. teletypesetter monitor applied - NSR. EKG performed by tech. pending ED provider.
[2022-02-18] MEDS: 0.9 % Sodium Chloride 1,000 ML 999 ML IVCONT (09:47)
[2022-02-18 09:52] LABS: MANUAL DIFF FLAG NO
[2022-02-18 09:54] LABS: Basophils Percent Auto 0.3 % (0-2); Eosinophils Absolute Auto 0.1 X10*3/uL (0.0-0.4); Hematocrit 39.4 % (37.0-47.0); Hemoglobin 12.7 g/dl (12.0-16.0); Imm Gran Abs Auto 0.03 X10*3/uL (0.00-0.03); Imm Gran Pct Auto 0.3 % (0.0-0.4); Lymphocytes Absolute Auto 2.5 X10*3/uL (1.2-4.9); Lymphocytes Percent Auto 27.2 % (20-40); Mean Corpuscular HGB Conc 32.2 g/dl (31.0-35.0); Mean Corpuscular Hemoglobin 30.2 pg (27.0-33.0); Mean Corpuscular Volume 93.8 fL (80.0-98.0); Mean Platelet Volume 9.3 fL (9.4-12.3); Monocytes Absolute Auto 0.6 X10*3/uL (0.1-1.2); Monocytes Percent Auto 6.1 % (2-11); Neutrophils Absolute Auto 5.9 x10*3/uL (2.0-8.3); Neutrophils Percent Auto 65.1 % (45-73); Platelet Count 288 X10*3/uL (160-400); Red Cell Distribution Width 12.1 % (11.0-16.0); White Blood Count 9.1 X10*3/uL (4.8-10.8)
[2022-02-18 10:08] LABS: INTERNATIONAL NORM RATIO 1.1 (0.9-1.1); Prothrombin Time 12.2 SEC (9.9-13.0)
[2022-02-18 10:29] LABS: HCG Quantitative < 2 mIU/mL; TSH reflex Free T4 0.92 uIU/mL (0.32-4.0)
[2022-02-18 10:41] LABS: Erythrocyte Sedimentation Rate 5 MM/HR (0-20)
[2022-02-18 10:43] LABS: Alanine Aminotransferase 13 U/L (0-31); Albumin Level 4.5 g/dL (3.5-5.0); Alkaline Phosphatase 82 U/L (39-117); Anion Gap 11 (12-20); Aspartate Amino Transferase 20 U/L (5-31); Bilirubin Direct 0.3 mg/dL (0.0-0.5); Bilirubin Total 0.9 mg/dL (0.0-1.0); Blood Urea Nitrogen 7 mg/dL (9-16); C Reactive Protein 0.42 mg/dL (< or = 0.50); Calcium 9.7 mg/dL (8.4-10.2); Carbon Dioxide 25 mmol/L (22-29); Chloride 106 mmol/L (96-108); Creatinine Clr Calc Pharmacy 115.9; Estimated Glomerular Filt Rate > 60; Glucose Random 90 mg/dL (60-115); Magnesium 1.7 mg/dL (1.6-2.6); Potassium 4.1 mmol/L (3.3-5.1); Sodium 138 mmol/L (135-145); Total Protein 7.9 g/dL (6.5-8.0)
[2022-02-18] MEDS: Butalb/Acetamin/Caff 50/325/40 TABLET 1 TAB PO (11:52)
[2022-02-18 11:53] VITALS: BP 98/57; PULSE 94; RESP 11; O2SAT 100
--- NOTE | 2022-02-18 11:54 | PC.NURSE ---
pt a&ox3, vss, pt c/o 07/27 pain, medicated per provider order. no new orders at this time. pending CT results.
[2022-02-18] MEDS: iohexoL 350 MG/ML 100 ML INFUS..BTL IV (12:21)
--- NOTE | 2022-02-18 13:29 | PC.NURSE ---
OK FOR DC PER PRIMARY RN PT AWAKE, ALERT AND ORIENTED X 3. SKIN WARM AND DRY. RESP UNLABORED. DENIES N/V. REPORTS PAIN REDUCED SINCE ARRIVAL. MOVING ALL EXTREMITIES FREELY. NO ACUTE DISTRESS. GCS 15
[2022-02-20 17:01] LABS: Lyme Abs Screen <0.90 index
== END 2022-02-18 13:32 | disposition home or self-care (01) ==
PROVIDERS: Emergency Provider Emergency Medicine; PCP Internal Medicine
DX: G51.0 Bell's palsy (principal); J01.30 Acute sphenoidal sinusitis, unspecified
CPT/HCPCS: 36415; 70496; 70498; 80048; 80076; 83735; 84443; 84702; 85025; 85610; 85652; 86140; 86617; 86618; 93005; 96360; 99284; Q9967

== ENCOUNTER 2022-04-16 18:41 | Emergency (ER) | payer OTHER, SELFPAY ==
--- NOTE | ~2022-04-16 | CT_ITS ---
EXAMINATION: CT ABDOMEN AND PELVIS WITHOUT CONTRAST CLINICAL INFORMATION: Left lower quadrant pain. Question diverticulitis. COMPARISON: None TECHNIQUE: Multidetector volumetric imaging was performed from the superior aspect of the liver through the pubic symphysis. Sagittal and coronal reformatted images were obtained on the technologist's workstation. This CT examination was performed using dose optimization techniques as appropriate, variously including the following: *Automated exposure control *Adjustment of mA and/or kV according to patient size (this includes techniques or standardized protocols for targeted exams where dose is matched to indication/reason for exam; i.e. extremities or head) *Use of iterative reconstruction technique DLP: 584 mGy-cm FINDINGS: LUNG BASES: The visualized lung bases are unremarkable. LIVER, GALLBLADDER, AND BILIARY TREE: The liver is normal in size, shape, and attenuation. No focal hepatic lesion or biliary ductal dilatation is present. The gallbladder is unremarkable with no evidence of radiopaque gallstones, gallbladder wall thickening, or obvious pericholecystic inflammatory changes. PANCREAS: Unremarkable. SPLEEN: Unremarkable. ADRENAL GLANDS: Unremarkable. KIDNEYS AND URETERS: Lobulated right kidney. Normal size and attenuation. No hydronephrosis. There are at least 3 right-sided renal calculi. The largest is at the midpole measuring 0.3 cm, 10 cm from the posterior axillary line . BLADDER: Unremarkable. GASTROINTESTINAL TRACT: The stomach is unremarkable. Normal caliber small bowel. No obstruction. There is no significant diverticulosis visualized. There is mild inflammation of the fat along the sigmoid colon. No free air. No fluid collection. ABDOMINAL WALL: No significant hernia is appreciated. LYMPH NODES: Normal. VASCULAR: Unremarkable. PELVIC VISCERA: Anteverted uterus. 5.5 cm right adnexal simple appearing cyst. This is almost certainly benign. Prominent, lobulated appearance of the left ovary likely associated with multiple follicles. OSSEOUS STRUCTURES: Bilateral L5 pars defects. CT/CT abdomen pelvis wo con IMPRESSION: Inflammatory changes are seen in the left lower quadrant asymmetric to the sigmoid colon. There are no colonic diverticula visualized. This could represent colitis. Alternatively this is in the region of the left ovary and could be associated with a hemorrhagic cyst. Nonobstructing right-sided renal calculi. Fleischner guidelines were followed.
--- NOTE | ~2022-04-16 | US_ITS ---
EXAMINATION: ULTRASOUND OF THE PELVIS CLINICAL INFORMATION: Left pelvic pain. Question hemorrhagic ovarian cyst.. COMPARISON: 04/17/2022. TECHNIQUE: Transabdominal and transvaginal pelvic ultrasound. Doppler evaluation with spectral analysis was performed. A transvaginal study was performed in addition to the transabdominal study which did not yield an adequate examination of the uterus and ovaries due to superimposed distended gas-filled loops of bowel. FINDINGS: The uterus is normal in size and appearance, measuring 13.1 x 5.5 x 7.5 cm longitudinally, anteroposteriorly and transversely. The endometrial stripe thickness is normal, measuring 0.6 cm in thickness. Small amount of fluid in the endometrial canal. No focal myometrial mass is seen. The ovaries bilaterally are visualized, with the right ovary measuring 6.1 x 5 x 5.4 cm and the left ovary measuring 4.3 x 2.4 x 3 cm. There are normal arterial and venous spectral waveforms bilaterally. Complex right ovarian cyst with internal echoes measuring up to 5.9 cm. Trace pelvic free fluid. US/US pelvic and transvaginal IMPRESSION: Complex right ovarian cyst with internal echoes may represent a hemorrhagic cyst. No left adnexal mass identified. No evidence of active ovarian torsion at this time.
[2022-04-16 20:16] VITALS: BP 126/74; PULSE 94; RESP 18; TEMP 37; O2SAT 99; BMI 28.3
[2022-04-16 21:26] LABS: MANUAL DIFF FLAG NO
[2022-04-16 21:28] LABS: Basophils Percent Auto 0.2 % (0-2); Eosinophils Percent Auto 0.2 % (0-4); Hematocrit 34.4 % (37.0-47.0); Hemoglobin 11.6 g/dl (12.0-16.0); Imm Gran Abs Auto 0.08 X10*3/uL (0.00-0.03); Imm Gran Pct Auto 0.5 % (0.0-0.4); Lymphocytes Absolute Auto 1.7 X10*3/uL (1.2-4.9); Lymphocytes Percent Auto 10.7 % (20-40); Mean Corpuscular HGB Conc 33.7 g/dl (31.0-35.0); Mean Corpuscular Hemoglobin 30.9 pg (27.0-33.0); Mean Corpuscular Volume 91.7 fL (80.0-98.0); Mean Platelet Volume 9.4 fL (9.4-12.3); Monocytes Percent Auto 6.2 % (2-11); Neutrophils Absolute Auto 13.3 x10*3/uL (2.0-8.3); Neutrophils Percent Auto 82.2 % (45-73); Platelet Count 274 X10*3/uL (160-400); Red Blood Count 3.75 X10*6/uL (4.20-5.50); Red Cell Distribution Width 12.1 % (11.0-16.0); White Blood Count 16.2 X10*3/uL (4.8-10.8)
[2022-04-16 21:29] LABS: Appearance Urine CLEAR; Color Urine YELLOW; Glucose Urine UA NEG (NEG); Leukocyte Esterase Urine NEG (NEG); Nitrite Urine NEG (NEG); PH 6.5 (5.0-8.0); Specific Gravity - Urine 1.015 (1.005-1.025); UACC Culture Trigger NO; Urine Blood TRACE (NEG); Urine Ketones NEG (NEG); Urine Protein NEG (NEG-TRACE)
[2022-04-16 21:37] LABS: Bacteria Urine 1+ /LPF; Mucus Urine 1+ /LPF; Squamous Epithelial Cell Urine 1+ /LPF
[2022-04-16 21:39] LABS: WBC Urine 0-2 /HPF (0-4)
[2022-04-16 21:46] LABS: Alanine Aminotransferase 10 U/L (0-31); Albumin Level 4.4 g/dL (3.5-5.0); Alkaline Phosphatase 76 U/L (39-117); Anion Gap 11 (12-20); Aspartate Amino Transferase 16 U/L (5-31); Bilirubin Direct 0.5 mg/dL (0.0-0.5); Bilirubin Total 1.2 mg/dL (0.0-1.0); Blood Urea Nitrogen 7 mg/dL (9-16); Calcium 9.4 mg/dL (8.4-10.2); Carbon Dioxide 24 mmol/L (22-29); Chloride 105 mmol/L (96-108); Creatinine Clr Calc Pharmacy 114.2; Estimated Glomerular Filt Rate > 60; Glucose Random 95 mg/dL (60-115); Potassium 3.9 mmol/L (3.3-5.1); Sodium 136 mmol/L (135-145); Total Protein 7.3 g/dL (6.5-8.0)
[2022-04-16 23:19] LABS: UPreg QC Valid YES; Urine Pregnancy NEGATIVE (NEGATIVE)
--- NOTE | 2022-04-17 00:32 | ED_ITS ---
HPI - Abdominal Pain General Chief Complaint: Abdominal Pain Stated Complaint: lower abd pain Time Seen by Provider: 04/17/22 00:31 Source: patient Mode of arrival: ambulatory Limitations: no limitations History of Present Illness HPI narrative: Patient is 32 years old with no significant past medical history notes pain in left lower abdomen since again last night getting worse did not eat much today no nausea no vomiting no diarrhea no fever no chills no urinary complaints no diarrhea patient has similar pain 2 weeks ago which lasted for a week and she got better and pain started again last night no history of kidney stones no history of diverticulitis Related Data Previous Rx's Medication Instructions Recorded omeprazole 20 mg capsule,delayed 20 mg PO DAILY #30 caps 04/27/21 release azithromycin 250 mg tablet See Rx Instructions PO .COMPLEX #6 02/18/22 tabs prednisone 20 mg tablet 60 mg PO DAILY 5 days #15 tabs 02/18/22 valacyclovir 1 gram tablet 1,000 mg PO TID 7 days #21 tabs 02/18/22 ibuprofen 600 mg tablet 600 mg PO Q6H PRN pain #30 tabs 04/17/22 Allergies Allergy/AdvReac Type Severity Reaction Status Date / Time Penicillins Allergy Mild RASH Unverified 07/04/20 17:16 Review of Systems Review of Systems Yes all other systems are reviewed and are negative PMFSH Past Medical History Medical History No known health problems Social History Social History Alcohol intake: current Alcohol intake frequency: a few times a month Alcohol type: wine Patient Tobacco Use Status: Current someday Tobacco user Smoked in Last 30 Days: Yes Substance Use Type: Marijuana Substance Use Frequency: Daily Advance Directives: No Advance Directives Information Provided: No Physical Exam ED Vital Signs: Vital Signs - 24 hr 04/16/22 20:16 04/17/22 00:33 04/17/22 00:56 Temperature 98.6 F 97.7 F 98.0 F Pulse Rate 94 90 74 Respiratory Rate 18 18 Blood Pressure 126/74 123/71 132/73 Pulse Oximetry 99 99 99 Oxygen Delivery Method Room Air Room Air Room Air 04/17/22 01:13 04/17/22 02:27 Temperature 97.5 F Pulse Rate 77 Respiratory Rate 16 14 Blood Pressure 115/48 L Pulse Oximetry Oxygen Delivery Method BMI result Body Mass Index 28.3 Appearance: Alert. Oriented X3. No acute distress. Eyes: No pallor or icterus ENT: Pharynx normal. Oral Mucosa moist Neck: Normal inspection. Neck supple. CVS: Normal heart rate and rhythm. Pulses normal. Respiratory: No respiratory distress. Equal air entry bilateral, no wheezing/rales/rhonchi Abdomen: Soft , tenderness suprapubic and left lower quadrant with guarding no rebound tenderness Bowel sounds are present, no mass palpable, no CVA tenderness Skin: Skin warm and dry. Normal skin color. Normal skin turgor. Extremities: No lower extremity edema. No calf tenderness Neuro: Oriented X 3. No motor deficit. MDM - Abdominal Pain MDM Narrative Medical decision making narrative: Patient CT scan of the abdomen showed slight inflammation around the sigmoid colon ultrasound of the pelvis shows right complex ovarian cyst 5.9 cm without any torsion. No free fluid. Will discharge patient home on pain medication for right ovarian cyst advised to follow up with executive talent acquisition consultant patient feeling much better now pain is almost gone Differential Diagnosis Differential diagnosis: Likely abdominal pain, calculus of kidney, diverticulitis and ovarian cyst Lab Data Attestation: I reviewed the patient's lab results. Result diagrams: 04/16/22 21:20 04/16/22 21:20 Labs: Lab Results 04/16/22 04/16/22 04/16/22 Range/Units 21:20 21:20 21:20 WBC 16.2 H (4.8-10.8) X10*3/uL RBC 3.75 L (4.20-5.50) X10*6/uL Hgb 11.6 L (12.0-16.0) g/dl Hct 34.4 L (37.0-47.0) % MCV 91.7 (80.0-98.0) fL MCH 30.9 (27.0-33.0) pg MCHC 33.7 (31.0-35.0) g/dl RDW 12.1 (11.0-16.0) % Plt Count 274 (160-400) X10*3/uL MPV 9.4 (9.4-12.3) fL Immature Gran % (Auto) 0.5 H (0.0-0.4) % Neut % (Auto) 82.2 H (45-73) % Lymph % (Auto) 10.7 L (20-40) % [place] % (Auto) 6.2 (2-11) % Eos % (Auto) 0.2 (0-4) % Baso % (Auto) 0.2 (0-2) % Lymph # (Auto) 1.7 (1.2-4.9) X10*3/uL [place] # (Auto) 1.0 (0.1-1.2) X10*3/uL Eos # (Auto) 0.0 (0.0-0.4) X10*3/uL Baso # (Auto) 0.0 (0.0-0.2) X10*3/uL Abs Immat Gran (auto) 0.08 H (0.00-0.03) X10*3/uL Absolute Neuts (auto) 13.3 H (2.0-8.3) x10*3/uL Absolute Nucleated RBC 0.000 (0.0-0.012) X10*3/uL Nucleated RBC % (auto) 0.0 (0.0-0.2) /100WBC Sodium 136 (135-145) mmol/L Potassium 3.9 (3.3-5.1) mmol/L Chloride 105 (96-108) mmol/L Carbon Dioxide 24 (22-29) mmol/L Anion Gap 11 L (12-20) BUN 7 L (9-16) mg/dL Creatinine 0.70 (0.5-1.4) mg/dL Estim Creat Clear Calc 114.2 Estimated GFR > 60 Random Glucose 95 (60-115) mg/dL Calcium 9.4 (8.4-10.2) mg/dL Total Bilirubin 1.2 H (0.0-1.0) mg/dL Direct Bilirubin 0.5 (0.0-0.5) mg/dL AST 16 (5-31) U/L ALT 10 (0-31) U/L Alkaline Phosphatase 76 (39-117) U/L Total Protein 7.3 (6.5-8.0) g/dL Albumin 4.4 (3.5-5.0) g/dL Urine Color YELLOW Urine Appearance CLEAR Urine pH 6.5 (5.0-8.0) Ur Specific [place] 1.015 (1.005-1.025) Urine Protein NEG (NEG-TRACE) MG/DL Urine Glucose (UA) NEG (NEG) MG/DL Urine Ketones NEG (NEG) MG/DL Urine Blood TRACE (NEG) Urine Nitrite NEG (NEG) Ur Leukocyte Esterase NEG (NEG) Urine RBC 5-9 H (0) /HPF Urine WBC 0-2 (0-4) /HPF Ur Squamous Epith Cells 1+ /LPF Urine Bacteria 1+ /LPF Urine Mucus 1+ /LPF Urine Test (NEGATIVE) 04/16/22 Range/Units 21:20 WBC (4.8-10.8) X10*3/uL RBC (4.20-5.50) X10*6/uL Hgb (12.0-16.0) g/dl Hct (37.0-47.0) % MCV (80.0-98.0) fL MCH (27.0-33.0) pg MCHC (31.0-35.0) g/dl RDW (11.0-16.0) % Plt Count (160-400) X10*3/uL MPV (9.4-12.3) fL Immature Gran % (Auto) (0.0-0.4) % Neut % (Auto) (45-73) % Lymph % (Auto) (20-40) % [place] % (Auto) (2-11) % Eos % (Auto) (0-4) % Baso % (Auto) (0-2) % Lymph # (Auto) (1.2-4.9) X10*3/uL [place] # (Auto) (0.1-1.2) X10*3/uL Eos # (Auto) (0.0-0.4) X10*3/uL Baso # (Auto) (0.0-0.2) X10*3/uL Abs Immat Gran (auto) (0.00-0.03) X10*3/uL Absolute Neuts (auto) (2.0-8.3) x10*3/uL Absolute Nucleated RBC (0.0-0.012) X10*3/uL Nucleated RBC % (auto) (0.0-0.2) /100WBC Sodium (135-145) mmol/L Potassium (3.3-5.1) mmol/L Chloride (96-108) mmol/L Carbon Dioxide (22-29) mmol/L Anion Gap (12-20) BUN (9-16) mg/dL Creatinine (0.5-1.4) mg/dL Estim Creat Clear Calc Estimated GFR Random Glucose (60-115) mg/dL Calcium (8.4-10.2) mg/dL Total Bilirubin (0.0-1.0) mg/dL Direct Bilirubin (0.0-0.5) mg/dL AST (5-31) U/L ALT (0-31) U/L Alkaline Phosphatase (39-117) U/L Total Protein (6.5-8.0) g/dL Albumin (3.5-5.0) g/dL Urine Color Urine Appearance Urine pH (5.0-8.0) Ur Specific [place] (1.005-1.025) Urine Protein (NEG-TRACE) MG/DL Urine Glucose (UA) (NEG) MG/DL Urine Ketones (NEG) MG/DL Urine Blood (NEG) Urine Nitrite (NEG) Ur Leukocyte Esterase (NEG) Urine RBC (0) /HPF Urine WBC (0-4) /HPF Ur Squamous Epith Cells /LPF Urine Bacteria /LPF Urine Mucus /LPF Urine Test NEGATIVE (NEGATIVE) Discharge Plan Discharge Clinical Impression: Ovarian cyst Patient Disposition: Home, Self-Care Instructions: Ovarian Cyst (ED) Additional Instructions: Rest at home Take ibuprofen for pain Follow with executive talent acquisition consultant You have 5.9 cm cyst on the right ovary which causing the pain Prescriptions: New ibuprofen 600 mg tablet 600 mg PO Q6H PRN (Reason: pain) Qty: 30 0RF No Action omeprazole 20 mg capsule,delayed release(DR/EC) 20 mg PO DAILY Qty: 30 0RF prednisone 20 mg tablet 60 mg PO DAILY 5 Days Qty: 15 0RF valacyclovir 1 gram tablet 1,000 mg PO TID 7 Days Qty: 21 0RF azithromycin 250 mg tablet See Rx Instructions PO .COMPLEX Qty: 6 0RF Rx Instructions: For 250 mg dose pack: take 500 mg today (day 1), then 250 mg for 4 days (days 2-5) Referrals: Gino Martin MD [Physician] - 1 week
[2022-04-17 00:33] VITALS: BP 123/71; PULSE 90; RESP 18; TEMP 36.5; O2SAT 99
[2022-04-17 00:56] VITALS: BP 132/73; PULSE 74; TEMP 36.7; O2SAT 99
[2022-04-17] MEDS: 0.9 % Sodium Chloride 1,000 ML 999 ML IV (01:04)
[2022-04-17] MEDS: ondansetron HCL 4 MG/2 ML VIAL IVPUSH (01:12)
[2022-04-17 01:13] VITALS: RESP 16
[2022-04-17] MEDS: Morphine Sulfate 4 MG/ML CARTRIDGE IVPUSH (01:13)
[2022-04-17 02:27] VITALS: BP 115/48; PULSE 77; RESP 14; TEMP 36.4
[2022-04-17] MEDS: Ketorolac Tromethamine 30 MG/ML VIAL IVPUSH (02:36)
[2022-04-17 04:30] VITALS: BP 117/50; PULSE 78; RESP 18; TEMP 36.7; O2SAT 100
== END 2022-04-17 04:32 | disposition home or self-care (01) ==
PROVIDERS: Emergency Provider Internal Medicine; PCP Internal Medicine
DX: N83.202 Unspecified ovarian cyst, left side (principal); R10.32 Left lower quadrant pain; F17.200 Nicotine dependence, unspecified, uncomplicated; F12.90 Cannabis use, unspecified, uncomplicated
CPT/HCPCS: 36415; 74176; 76830; 76856; 80053; 81001; 81025; 82248; 85025; 96361; 96374; 96375; 99284; J1885; J2270; J2405

== ENCOUNTER 2022-05-19 11:38 | Outpatient (REF) | payer OTHER, SELFPAY ==
[2022-05-19 16:52] LABS: CT PCR NOT DETECTED (Not Detect.); NG PCR NOT DETECTED (Not Detect.)
== END 2022-05-19 11:39 | disposition home or self-care (01) ==
LOC: HO.LAB 11:38
PROVIDERS: PCP Internal Medicine; Visit Provider Obstetrics & Gynecology
DX: Z32.02 Encounter for pregnancy test, result negative (principal); N83.299 Other ovarian cyst, unspecified side; N91.2 Amenorrhea, unspecified
CPT/HCPCS: 81025; 87491; 87591; 99202

== ENCOUNTER → 2022-06-10 11:28 | Outpatient (BNVA) | payer OTHER, SELFPAY | PROVIDERS: PCP Internal Medicine; Visit Provider Obstetrics & Gynecology | DX: N91.2 Amenorrhea, unspecified (principal) | CPT/HCPCS: 99212 ==

== ENCOUNTER 2022-08-18 11:10 | Outpatient (REF) | payer OTHER, SELFPAY ==
--- NOTE | ~2022-08-18 | US_ITS ---
EXAMINATION: US PELVIS CLINICAL INFORMATION: Ovarian cyst. COMPARISON: None. TECHNIQUE: Ultrasound of the pelvis is performed using both transabdominal and transvaginal transducers along with Doppler. Transvaginal imaging is performed due to inadequate visualization transabdominally. FINDINGS: Uterus: The uterus is anteverted, anteflexed and measures 10.0 cm in length, 5.3 cm in AP and 5.9 cm in transverse dimension The double wall endometrial thickness is 0.6 cm. The uterus is smooth in contour and has normal myometrial echogenicity. No visible fibroid. There are small nabothian cysts seen in the cervix. Adnexa: Both ovaries are visualized. There is normal color flow to the adnexa. There is no ovarian torsion. There is no pelvic ascites or fluid collection. Right ovary measures 5.1 x 2.9 x 1.9 cm and volume 11.6 mL. It appears unremarkable. Previously it measured 6.1 x 5.0 x 5.4 cm. Left ovary measures 2.4 x 1.7 x 2.3 cm and volume 5.9 mL. It appears unremarkable. Previously measured 4.3 x 2.4 x 3.0 cm. Small amount of free fluid is seen in the right adnexa with mild right adnexal vascular congestion suspected. US/US pelvic and transvaginal IMPRESSION: Unremarkable uterus. Small nabothian cysts in the cervix. Small amount of free fluid in right adnexa with right adnexal pelvic congestion.
== END 2022-08-18 11:11 | disposition home or self-care (01) ==
LOC: HO.US 11:10
PROVIDERS: Visit Provider Obstetrics & Gynecology
DX: N83.299 Other ovarian cyst, unspecified side (principal)
CPT/HCPCS: 76830; 76856

== ENCOUNTER 2022-09-22 12:03 | Outpatient (REF) | payer OTHER, SELFPAY ==
[2022-09-22 14:48] LABS: HCG Quantitative < 2 mIU/mL; TSH reflex Free T4 0.58 uIU/mL (0.32-4.0)
[2022-09-23 07:19] LABS: Follicle Stimulating Hormone 3.4 mIU/mL; Prolactin 5.2 ng/mL
[2022-09-27 17:08] LABS: Testosterone, Free 2.8 pg/mL (0.1-6.4); Testosterone, Total 32 ng/dL (2-45)
== END 2022-09-22 12:04 | disposition home or self-care (01) ==
LOC: HO.LAB 12:03
PROVIDERS: PCP Internal Medicine; Visit Provider Obstetrics & Gynecology
DX: N83.299 Other ovarian cyst, unspecified side (principal); L68.0 Hirsutism; N91.2 Amenorrhea, unspecified
CPT/HCPCS: 36415; 83001; 83002; 83498; 84146; 84402; 84403; 84443; 84702; 99212

== ENCOUNTER 2022-12-21 09:37 | Emergency (ER) | payer OTHER, SELFPAY ==
--- NOTE | ~2022-12-21 | US_ITS ---
EXAMINATION: US OBSTETRICAL ULTRASOUND CLINICAL INFORMATION: Early , bleeding, cramping COMPARISON: Pelvic ultrasound 08/18/2022. LMP: 11/04/2022. Gestational age by maternal dates is 6 weeks 5 days. Estimated date of delivery by maternal dates is 08/11/2023. TECHNIQUE: Ultrasound of the pelvis is performed using both transabdominal and transvaginal transducers along with Doppler. Transvaginal imaging is performed due to inadequate visualization transabdominally. FINDINGS: Uterus: The uterus is anteverted. The uterine surface is smooth. There is thickened double wall endometrium 1.5 cm. There is trace fluid in the lower uterine segment and endocervical canal consistent with the history of bleeding. There is no intrauterine gestational sac demonstrated. No definite fibroid demonstrated. Adnexa: There is trace fluid in the cul-de-sac. No significant pelvic ascites. Both ovaries are visualized. There is normal color flow to the adnexa. There is no ovarian torsion. There is a small postovulatory follicle left ovary 1.3 cm. No surrounding hyperemia. There is no adnexal mass. Right ovary measures 2.4 x 1.9 x 2.3 cm. Left ovary measures 2.4 x 2.2 x 2.4 cm. US/US OB pelvic and transvaginal IMPRESSION: -Mild thickening double wall endometrium, 1.5 cm. Trace fluid lower uterine segment and endocervical canal consistent with history of bleeding. -No visible intrauterine gestational sac. No adnexal mass. -Recommend follow-up beta hCG and follow-up ultrasound to assess for possible developing .
[2022-12-21 09:41] VITALS: BP 126/78; PULSE 91; RESP 20; TEMP 36.9; O2SAT 99; BMI 26.7
[2022-12-21 10:06] LABS: Basophils Percent Auto 0.3 % (0-2); Eosinophils Absolute Auto 0.1 X10*3/uL (0.0-0.4); Eosinophils Percent Auto 0.6 % (0-4); Hemoglobin 11.1 g/dl (12.0-16.0); Imm Gran Abs Auto 0.04 X10*3/uL (0.00-0.03); Imm Gran Pct Auto 0.4 % (0.0-0.4); Lymphocytes Absolute Auto 2.2 X10*3/uL (1.2-4.9); Lymphocytes Percent Auto 19.8 % (20-40); MANUAL DIFF FLAG NO; Mean Corpuscular HGB Conc 32.6 g/dl (31.0-35.0); Mean Corpuscular Hemoglobin 30.2 pg (27.0-33.0); Mean Corpuscular Volume 92.6 fL (80.0-98.0); Mean Platelet Volume 9.3 fL (9.4-12.3); Monocytes Absolute Auto 0.6 X10*3/uL (0.1-1.2); Monocytes Percent Auto 5.5 % (2-11); Neutrophils Absolute Auto 8.1 x10*3/uL (2.0-8.3); Neutrophils Percent Auto 73.4 % (45-73); Platelet Count 286 X10*3/uL (160-400); Red Blood Count 3.67 X10*6/uL (4.20-5.50); Red Cell Distribution Width 12.1 % (11.0-16.0); White Blood Count 11.1 X10*3/uL (4.8-10.8)
[2022-12-21 10:17] LABS: Appearance Urine Clear; Color Urine Yellow; Glucose Urine UA Negative (Negative); Leukocyte Esterase Urine Negative (Negative); Nitrite Urine Negative (Negative); PH 5.5 (5.0-9.0); Specific Gravity - Urine >= 1.030 (1.005-1.025); UMIC TRIGGER UACC YES; Urine Blood Trace (Negative); Urine Ketones Trace mg/dL (Negative); Urine Protein Trace mg/dL (Neg-Trace)
[2022-12-21 10:24] LABS: Anion Gap 12 (12-20); Blood Urea Nitrogen 9 mg/dL (9-16); Calcium 8.9 mg/dL (8.4-10.2); Carbon Dioxide 22 mmol/L (22-29); Chloride 109 mmol/L (96-108); Creatinine Clr Calc Pharmacy 118.1; Estimated Glomerular Filt Rate > 60; Glucose Random 97 mg/dL (60-115); Sodium 139 mmol/L (135-145)
[2022-12-21 10:27] LABS: HCG Quantitative 994 mIU/mL
[2022-12-21 10:38] LABS: Bacteria Urine None Seen (None Seen); Hyaline Casts Urine 0-2 /LPF (0-2); WBC Urine 0-5 /HPF (0-5)
[2022-12-21 16:00] VITALS: BP 104/68; PULSE 85; RESP 13; TEMP 36.8; O2SAT 100
--- NOTE | 2022-12-21 16:49 | ED_ITS ---
HPI - General Adult General Chief complaint: Vaginal Bleeding Stated complaint: 6wks preg/Spotting&cramping Time Seen by Provider: 12/21/22 16:09 Source: patient Mode of arrival: ambulatory Limitations: no limitations History of Present Illness HPI narrative: 32-year-old female presents with vaginal spotting and mild right lower pelvic pain. Symptoms started a couple of days could. Patient has never had th angel symptoms during her previous pregnancies. She has had no fevers or chills. No clots or passage of tissue. Pain does not radiate. Patient also reports sensation of pressure but no urinary frequency, urgency or dysuria. There is no clear relieving or exacerbating features. No diarrhea constipation. No nausea or vomiting. Related Data Allergies Allergy/AdvReac Type Severity Reaction Status Date / Time Penicillins Allergy Mild RASH Verified 09/22/22 12:06 Review of Systems Review of Systems: CONSTITUTIONAL: Denies weight loss, fever and chills. HEENT: Denies changes in vision and hearing. RESPIRATORY: Denies SOB and cough. CV: Denies palpitations no CP. GI: Denies abdominal pain, nausea, vomiting and diarrhea. : Denies dysuria and urinary frequency. MSK: Denies myalgia and joint pain. SKIN: Denies rash and pruritus. NEUROLOGICAL: Denies headache and syncope. PSYCHIATRIC: Denies recent changes in mood. Denies anxiety and depression. All other ROS are negative unless in HPI PMFSH Past Medical History Medical History No known health problems Surgical History History of dilatation and curettage Social History Social History Alcohol intake: current Alcohol intake frequency: a few times a month Alcohol type: wine Patient Tobacco Use Status: Current someday Tobacco user Substance Use Type: Marijuana Advance Directives: No Advance Directives Information Provided: No Physical Exam ED Vital Signs: Vital Signs - 24 hr 12/21/22 09:41 12/21/22 16:00 Temperature 98.5 F 98.3 F Pulse Rate 91 85 Respiratory Rate 20 13 Blood Pressure 126/78 104/68 Pulse Oximetry 99 100 Oxygen Delivery Method Room Air Room Air BMI result Body Mass Index 26.7 GEN: Well developed, no acute distress, alert, oriented HEENT: Normocephalic, atraumatic, normal external ears, nose appears normal Eyes: Normal to appearance Neck: Supple, no lymphadenopathy Respiratory: Talks in complete sentences, no respiratory distress Abdomen: Nondistended, nontender, no rebound or guarding, no pelvic tenderness : No active bleeding, os is closed, no adnexal masses or tenderness Extremities: No clubbing cyanosis or edema Neurologic: No focal neurologic deficits, cranial nerves 2-12 intact, gait normal Skin: No rash Course Course Course Narrative: 32-year-old female presents with spotting and mild cramping and pressure sensation in the pelvis. Previous pregnancies have been unremarkable. Her examination was benign without any abdominal or pelvic tenderness, rebound or guarding. No masses were appreciated. There is no evidence of hemorrhage. Her os is closed. She is Rh positive. I am in the process of discussing care with her OBGYN. He recommends return to the emergency department with increasing pain, heavy bleeding otherwise, repeat hCG an office visit in 48 hours. This was discussed with the patient. She is aware of the diagnosis of vaginal bleeding early in . She is aware that this could represent an ectopic , threatened . She has verbalized return instructions to me. Medical Decision Making Medical Decision Making [facility] Narrative: 32-year-old female presents with some spotting and mild cramping and pelvic pressure. Examination was benign with also close, no rebound or tenderness the pelvic area. Ultrasound did not reveal an IUP. It is possible is too early in to evaluate for gestational sac. Patient is Rh positive and does not need require RhoGAM. I contacted her OBGYN who agrees with discharge at this time, close follow-up with repeat quantitative hCG. Patient was given strict instructions to return to the emergency department for increasing pain or bleeding. Patient is aware of the possible differential diagnoses per Differential Diagnosis Differential Diagnoses: The differential diagnosis associated with the presentation includes (Bleeding early in , threatened , miscarriage, ectopic ) Admission/Observation Consideration of admission/observation: Escalation of care including admission/observation considered Consult Healthcare Provider Management of the patient was discussed with: Animal Husbandman (OBGYN jaclyn Martin) Lab Data [facility] Lab Attestation statement: I reviewed the patient's lab results. 12/21/22 09:58 12/21/22 09:58 Labs: Lab Results 12/21/22 12/21/22 12/21/22 Range/Units 09:54 09:58 09:58 WBC 11.1 H (4.8-10.8) X10*3/uL RBC 3.67 L (4.20-5.50) X10*6/uL Hgb 11.1 L (12.0-16.0) g/dl Hct 34.0 L (37.0-47.0) % MCV 92.6 (80.0-98.0) fL MCH 30.2 (27.0-33.0) pg MCHC 32.6 (31.0-35.0) g/dl RDW 12.1 (11.0-16.0) % Plt Count 286 (160-400) X10*3/uL MPV 9.3 L (9.4-12.3) fL Immature Gran % (Auto) 0.4 (0.0-0.4) % Neut % (Auto) 73.4 H (45-73) % Lymph % (Auto) 19.8 L (20-40) % [place] % (Auto) 5.5 (2-11) % Eos % (Auto) 0.6 (0-4) % Baso % (Auto) 0.3 (0-2) % Lymph # (Auto) 2.2 (1.2-4.9) X10*3/uL [place] # (Auto) 0.6 (0.1-1.2) X10*3/uL Eos # (Auto) 0.1 (0.0-0.4) X10*3/uL Baso # (Auto) 0.0 (0.0-0.2) X10*3/uL Abs Immat Gran (auto) 0.04 H (0.00-0.03) X10*3/uL Absolute Neuts (auto) 8.1 (2.0-8.3) x10*3/uL Absolute Nucleated RBC 0.000 (0.0-0.012) X10*3/uL Nucleated RBC % (auto) 0.0 (0.0-0.2) /100WBC Sodium 139 (135-145) mmol/L Potassium 4.0 (3.3-5.1) mmol/L Chloride 109 H (96-108) mmol/L Carbon Dioxide 22 (22-29) mmol/L Anion Gap 12 (12-20) BUN 9 (9-16) mg/dL Creatinine 0.66 (0.5-1.4) mg/dL Estim Creat Clear Calc 118.1 Estimated GFR > 60 Random Glucose 97 (60-115) mg/dL Calcium 8.9 (8.4-10.2) mg/dL Beta HCG, Quant 994 mIU/mL Urine Color Yellow Urine Appearance Clear Urine pH 5.5 (5.0-9.0) Ur Specific [place] >= 1.030 H (1.005-1.025) Urine Protein Trace (Neg-Trace) mg/dL Urine Glucose (UA) Negative (Negative) mg/dL Urine Ketones Trace (Negative) mg/dL Urine Blood Trace H (Negative) Urine Nitrite Negative (Negative) Ur Leukocyte Esterase Negative (Negative) Urine RBC 3-5 H (0-2) /HPF Urine WBC 0-5 (0-5) /HPF Ur Squamous Epith Cells 3-5 (0-2) /HPF Urine Bacteria None Seen (None Seen) Hyaline Casts 0-2 (0-2) /LPF Blood Type Antibody Screen 12/21/22 Range/Units 14:54 WBC (4.8-10.8) X10*3/uL RBC (4.20-5.50) X10*6/uL Hgb (12.0-16.0) g/dl Hct (37.0-47.0) % MCV (80.0-98.0) fL MCH (27.0-33.0) pg MCHC (31.0-35.0) g/dl RDW (11.0-16.0) % Plt Count (160-400) X10*3/uL MPV (9.4-12.3) fL Immature Gran % (Auto) (0.0-0.4) % Neut % (Auto) (45-73) % Lymph % (Auto) (20-40) % [place] % (Auto) (2-11) % Eos % (Auto) (0-4) % Baso % (Auto) (0-2) % Lymph # (Auto) (1.2-4.9) X10*3/uL [place] # (Auto) (0.1-1.2) X10*3/uL Eos # (Auto) (0.0-0.4) X10*3/uL Baso # (Auto) (0.0-0.2) X10*3/uL Abs Immat Gran (auto) (0.00-0.03) X10*3/uL Absolute Neuts (auto) (2.0-8.3) x10*3/uL Absolute Nucleated RBC (0.0-0.012) X10*3/uL Nucleated RBC % (auto) (0.0-0.2) /100WBC Sodium (135-145) mmol/L Potassium (3.3-5.1) mmol/L Chloride (96-108) mmol/L Carbon Dioxide (22-29) mmol/L Anion Gap (12-20) BUN (9-16) mg/dL Creatinine (0.5-1.4) mg/dL Estim Creat Clear Calc Estimated GFR Random Glucose (60-115) mg/dL Calcium (8.4-10.2) mg/dL Beta HCG, Quant mIU/mL Urine Color Urine Appearance Urine pH (5.0-9.0) Ur Specific [place] (1.005-1.025) Urine Protein (Neg-Trace) mg/dL Urine Glucose (UA) (Negative) mg/dL Urine Ketones (Negative) mg/dL Urine Blood (Negative) Urine Nitrite (Negative) Ur Leukocyte Esterase (Negative) Urine RBC (0-2) /HPF Urine WBC (0-5) /HPF Ur Squamous Epith Cells (0-2) /HPF Urine Bacteria (None Seen) Hyaline Casts (0-2) /LPF Blood Type O Positive Antibody Screen NEGATIVE Independent Interpretation I performed an independent interpretation of an: Ultrasound (IMPRESSION: -Mild thickening double wall endometrium, 1.5 cm. Trace fluid lower uterine segment and endocervical canal consistent with history of bleeding. -No visible intrauterine gestational sac. No adnexal mass. -Recommend follow-up beta hCG and follow-up ultrasound to assess for possible dev) External Record Review External record reviewed: Office record (OBGYN record from 09/22/2022) Tests considered The following testing was considered but not selected: MRI Prescription Management I considered prescription management with: Pain Medication Discharge Plan Discharge Clinical Impression: Threatened , Bleeding in early Patient Disposition: Home, Self-Care Instructions: Threatened Miscarriage (ED) Additional Instructions: You should follow-up with your OBGYN in 48 hours for repeat hCG in evaluation. In the meantime, she developed increasing bleeding, abdominal pain, please seek immediate attention in the emergency department. Referrals: Gino Martin MD [Physician] - 2 days
--- NOTE | 2022-12-21 17:31 | PM.GYNCN ---
LUMP INSPECTOR - CN: HPI Data of Consult Consult date: 12/21/22 Primary Care Provider: Brian Paul III, MD Consult Narrative Narrative: I was consulted Rama Ferrell who is a 32 year old female presented to the emergency room with vaginal spotting and mild right lower pelvic pain. No other associated symptoms. Rh positive, H&H 11., hCG 994 cc:: CC: OB [facility] Past Medical History Medical History No known health problems Surgical History Surgical History History of dilatation and curettage Social History Social History Alcohol intake: current Alcohol intake frequency: a few times a month Alcohol type: wine Patient Tobacco Use Status: Current someday Tobacco user Substance Use Type: Marijuana Advance Directives: No Advance Directives Information Provided: No Meds Allergies Allergy/AdvReac Type Severity Reaction Status Date / Time Penicillins Allergy Mild RASH Verified 09/22/22 12:06 LUMP INSPECTOR Physical Exam Vitals Vital signs: Temp Pulse Resp BP Pulse Ox O2 Del Method 98.3 F 85 13 104/68 100 12/21/22 16:00 12/21/22 16:00 12/21/22 16:00 12/21/22 16:00 12/21/22 16:00 12/21/22 16:00 BMI result Body Mass Index 26.7 Additional Comments: Reported by Dr. Burton as the following: Abdomen soft nontender no guarding or rebound Pelvic exam : closed cervical os, no no evidence of active bleeding, no cervical motion tenderness , uterine or adnexal tenderness LUMP INSPECTOR - Results Labs 12/21/22 09:58 12/21/22 09:58 Labs: Short CBC 12/21/22 Range/Units 09:58 WBC 11.1 H (4.8-10.8) X10*3/uL Hgb 11.1 L (12.0-16.0) g/dl Hct 34.0 L (37.0-47.0) % Plt Count 286 (160-400) X10*3/uL BMP 12/21/22 09:58 Sodium 139 Potassium 4.0 Chloride 109 H Carbon Dioxide 22 BUN 9 Creatinine 0.66 Calcium 8.9 Urine 12/21/22 Range/Units 09:54 Urine Color Yellow Urine Appearance Clear Urine pH 5.5 (5.0-9.0) Ur Specific [place] >= 1.030 H (1.005-1.025) Urine Protein Trace (Neg-Trace) mg/dL Urine Glucose (UA) Negative (Negative) mg/dL Antibody Screen Antibody Screen NEGATIVE 12/21/22 14:54 Imaging US - abdomen: Radiologist's impression: ITS Impressions Pelvic/Transvag US 12/21/22 12:03 IMPRESSION: -Mild thickening double wall endometrium, 1.5 cm. Trace fluid lower uterine segment and endocervical canal consistent with history of bleeding. -No visible intrauterine gestational sac. No adnexal mass. -Recommend follow-up beta hCG and follow-up ultrasound to assess for possible developing . Assessment and Plan (1) Spotting in first trimester: Status: Acute Plan Recommended to Dr. Burton the following: SAB/ectopic warnings to be given to the patient. HCG and office follow-up in 48 hours. Instructions to be given to the patient to come back to emergency room in case of pelvic cramping/pain, persistence of vaginal spotting or development of vaginal bleeding and follow-up in the office in 48 hours hCG quantitative. A spent a total of 20 minutes reviewing the chart, communicating to the emergency room provider and documenting the medical record Time Spent With Patient Time: Total time managing care of this patient today ____ minutes.
== END 2022-12-21 17:15 | disposition home or self-care (01) ==
PROVIDERS: Emergency Provider Emergency Medicine; PCP Internal Medicine
DX: O20.0 Threatened abortion (principal); O26.851 Spotting complicating pregnancy, first trimester; Z3A.01 Less than 8 weeks gestation of pregnancy
CPT/HCPCS: 36415; 76801; 76817; 80048; 81001; 84702; 85025; 86850; 86900; 86901; 99283; 99284

== ENCOUNTER 2022-12-23 09:26 | Outpatient (REF) | payer OTHER, SELFPAY ==
[2022-12-23 10:11] LABS: HCG Quantitative 1412 mIU/mL
[2022-12-23 12:48] LABS: Hemoglobin 11.7 g/dl (12.0-16.0); Mean Corpuscular HGB Conc 32.5 g/dl (31.0-35.0); Mean Corpuscular Hemoglobin 30.2 pg (27.0-33.0); Mean Corpuscular Volume 92.8 fL (80.0-98.0); Mean Platelet Volume 9.8 fL (9.4-12.3); Platelet Count 326 X10*3/uL (160-400); Red Blood Count 3.88 X10*6/uL (4.20-5.50); Red Cell Distribution Width 12.3 % (11.0-16.0); White Blood Count 10.7 X10*3/uL (4.8-10.8)
[2022-12-23 13:05] LABS: Alanine Aminotransferase 11 U/L (0-31); Aspartate Amino Transferase 16 U/L (5-31); Estimated Glomerular Filt Rate > 60
[2022-12-23 14:20] LABS: CT PCR NOT DETECTED (Not Detect.); NG PCR NOT DETECTED (Not Detect.)
== END 2022-12-23 09:27 | disposition home or self-care (01) ==
LOC: HO.LAB 09:26
PROVIDERS: PCP Internal Medicine; Visit Provider Obstetrics & Gynecology
DX: O00.90 Unspecified ectopic pregnancy without intrauterine pregnancy (principal)
CPT/HCPCS: 0353U; 36415; 82565; 84450; 84460; 84702; 85027; 99212

== ENCOUNTER 2022-12-23 10:23 | Outpatient (REF) | payer OTHER, SELFPAY | END 2022-12-23 10:24 | disposition home or self-care (01) | LOC: HO.LNP 10:23 | PROVIDERS: Visit Provider Obstetrics & Gynecology | DX: Z13.89 Encounter for screening for other disorder (principal) ==

== ENCOUNTER 2022-12-23 10:34 | Outpatient (REF) | payer OTHER, SELFPAY ==
--- NOTE | ~2022-12-23 | US_ITS ---
EXAMINATION: US OBSTETRICAL ULTRASOUND CLINICAL INFORMATION: Encounter for supervision of other normal COMPARISON: Previous report from 12/21/2022. Real-time imaging by the composition roofer transvaginal study. Transabdominal Findings; There is no evidence of a intrauterine gestational sac. No pole is detected intrauterine. No yolk sac. Endometrial thickness is measured at 0.4 cm. The right ovary is measuring 2.3 x 2.6 x 2.3 cm. Minimal internal vascularity which is not measured by the composition roofer. In the right adnexa there is a structure identified by the composition roofer measuring 2.5 x 1.1 x 1.4 cm. This is thick-walled and shows a central cystic area. There is no ring of fire around this structure though there is vascularity in the thickened wall. The wall is echogenic. The left ovary is measuring 2.5 x 2.1 x 2.6 cm. There is internal ovarian vascularity. Small hypoechoic area identified by the composition roofer measuring 1.1 x 1 x 1.2 cm could represent a decompressing cyst. Corpus luteum would be a consideration. US/US OB pelvic and transvaginal IMPRESSION: Importantly there is no evidence of a gestational sac within the uterus. No pole. No yolk sac. The endometrial lining measures 4 mm. Noted here in the paraovarian region on the right thick-walled cystic structure with central lucency. There is no ring of fire vascularity detected around this structure but given the appearance and ectopic cannot be excluded here. No significant free fluid is seen though there is a small amount of fluid in the cul-de-sac. This critical result was discussed with Nata Nolan at 11:17 PM on 01/02/2023 and it was ascertained that the content and urgency of the report was understood at the time of direct communication.
== END 2022-12-23 10:35 | disposition home or self-care (01) ==
LOC: HO.US 10:34
PROVIDERS: Visit Provider Obstetrics & Gynecology
DX: Z34.90 Encounter for supervision of normal pregnancy, unspecified, unspecified trimester (principal)
CPT/HCPCS: 76801; 76817

== ENCOUNTER 2022-12-23 14:32 | Emergency (ER) | payer OTHER, SELFPAY ==
[2022-12-23 14:36] VITALS: BP 123/67; PULSE 102; RESP 17; TEMP 36.4; O2SAT 99; BMI 27.0
--- NOTE | 2022-12-23 14:40 | ED_ITS ---
HPI - General Adult General Chief complaint: General Medical Stated complaint: Needs methotrexate shot Time Seen by Provider: 12/23/22 14:37 Source: patient and old records reviewed Mode of arrival: ambulatory Limitations: no limitations History of Present Illness HPI narrative: 32 yo female presents to the ER after being seen by Dr. Martin in his office today and was diagnosed with an ectopic . She was sent down to the ER today to get methotrexate injection. She has been counseled and consented to this. She has no abdominal pain or vaginal bleeding. Labs have already been performed. She has outpatient follow up with Dr. Martin. complaint: Methotrexate administration Onset (ago): day(s) Associated symptoms: denies other symptoms Treatments prior to arrival: none Related Data Previous Rx's Medication Instructions Recorded ondansetron 4 mg disintegrating 4 mg PO Q8H PRN nausea and 12/23/22 tablet vomiting #8 tabs Allergies Allergy/AdvReac Type Severity Reaction Status Date / Time Penicillins Allergy Mild RASH Verified 12/23/22 10:12 Review of Systems Review of Systems: Yes all other systems are reviewed and are negative [facility] Past Medical History Medical History No known health problems Surgical History History of dilatation and curettage Social History Social History Alcohol intake: current Alcohol intake frequency: a few times a month Alcohol type: wine Patient Tobacco Use Status: Current someday Tobacco user Substance Use Type: Marijuana Advance Directives: No Advance Directives Information Provided: No Physical Exam ED Vital Signs: Vital Signs - 24 hr 12/23/22 14:36 Temperature 97.6 F Pulse Rate 102 H Respiratory Rate 17 Blood Pressure 123/67 Pulse Oximetry 99 Oxygen Delivery Method Room Air BMI result Body Mass Index 27.0 Appearance: Alert. Oriented X3. No acute distress. HEENT: normal inspection CVS: Normal heart rate and rhythm. Pulses normal. Respiratory: No respiratory distress. Abd: soft, nontender, no suprapubic tenderness. pelvic deferred Skin: Skin warm and dry. Normal skin color. Normal skin turgor. No rashes. Extremities: Normal inspection x 4. Neuro: Oriented X 3. Grossly normal, nonfocal. Medications Administered Discontinued Medications Generic Name Dose Route Start Last Admin Trade Name Rafael PRN Reason Stop Dose Admin Methotrexate 89 mg/ IV 3.56 mls @ 0 mls/hr 12/23/22 14:45 12/23/22 15:35 Miscellaneous Supplies IM 12/23/22 14:46 999 mls/hr ONCE ONE Administration As Directed Medical Decision Making Medical Decision Making MDM Narrative: [id number] presenting today with known ectopic confirmed by ultrasound today presenting today for methotrexate administration. She was seen by Dr. Martin in his office, has been counseled and has consented to this treatment. Patient has close follow up with Dr. Martin for further management. She is asymptomatic and has no abdominal pain, vaginal bleeding or discharge. Spoke to pharmacy staff to prepare medication, consent was faxed. Differential Diagnosis Differential Diagnoses: The differential diagnosis associated with the presentation includes ectopic , no evidence of ruptured ectopic , intrauterine Consult Healthcare Provider Management of the patient was discussed with: Biophysics Teacher Dr. Martin called the ER Independent Interpretation I performed an independent interpretation of an: Ultrasound Interpretation: Agree with radiologist reading, right adenxal mass noted. Radiology Impression Discussion of test interpretation with radiology: I have reviewed the radiologist's reading. Radiologist Impression: Findings; There is no evidence of a intrauterine gestational sac. No pole is detected intrauterine. No yolk sac. Endometrial thickness is measured at 0.4 cm. The right ovary is measuring 2.3 x 2.6 x 2.3 cm. Minimal internal vascularity which is not measured by the senior c developer. In the right adnexa there is a structure identified by the senior c developer measuring 2.5 x 1.1 x 1.4 cm. This is thick-walled and shows a central cystic area. There is no ring of fire around this structure though there is vascularity in the thickened wall. The wall is echogenic. The left ovary is measuring 2.5 x 2.1 x 2.6 cm. There is internal ovarian vascularity. Small hypoechoic area identified by the senior c developer measuring 1.1 x 1 x 1.2 cm could represent a decompressing cyst. Corpus luteum would be a consideration. US/US OB pelvic and transvaginal IMPRESSION: Importantly there is no evidence of a gestational sac within the uterus. No pole. No yolk sac. The endometrial lining measures 4 mm. ? Noted here in the paraovarian region on the right thick-walled cystic structure with central lucency. There is no ring of fire vascularity detected around this structure but given the appearance and ectopic cannot be excluded here. ? No significant free fluid is seen though there is a small amount of fluid in the cul-de-sac. ? This critical result was discussed with Nata Nolan at 11:17 PM on 01/02/2023 and it was ascertained that the content and urgency of the report was understood at the time of direct communication. Critical Care Time Critical Care Time Critical Care Time: No Discharge Plan Discharge Clinical Impression: Ectopic Patient Disposition: Home, Self-Care Instructions: Ectopic (DC) Additional Instructions: Rest and stay hydrated. Follow-up with Dr. Martin as outlined in your appointment today If you develop new or worsening symptoms call 911 or come back to the ER for further evaluation. Prescriptions: New ondansetron 4 mg tablet,disintegrating 4 mg PO Q8H PRN (Reason: nausea and vomiting) Qty: 8 0RF Referrals: Gino Martin MD [Physician] - Stand Alone Forms: Work/School Release
== END 2022-12-23 15:39 | disposition home or self-care (01) ==
PROVIDERS: Emergency Provider Emergency Medicine Emergency Medical Services; PCP Internal Medicine
DX: O00.90 Unspecified ectopic pregnancy without intrauterine pregnancy (principal)
CPT/HCPCS: 96372; 99282; 99284; J9250

== ENCOUNTER 2022-12-26 08:43 | Outpatient (REF) | payer OTHER, SELFPAY ==
[2022-12-26 10:40] LABS: HCG Quantitative 2039 mIU/mL
== END 2022-12-26 08:44 | disposition home or self-care (01) ==
LOC: HO.LAB 08:43
PROVIDERS: PCP Internal Medicine; Visit Provider Obstetrics & Gynecology
DX: O00.90 Unspecified ectopic pregnancy without intrauterine pregnancy (principal)
CPT/HCPCS: 36415; 84702

== ENCOUNTER 2022-12-29 12:02 | Outpatient (REF) | payer OTHER, SELFPAY ==
[2022-12-29 13:33] LABS: HCG Quantitative 1719 mIU/mL
== END 2022-12-29 12:03 | disposition home or self-care (01) ==
LOC: HO.LAB 12:02
PROVIDERS: PCP Internal Medicine; Visit Provider Obstetrics & Gynecology
DX: O00.90 Unspecified ectopic pregnancy without intrauterine pregnancy (principal)
CPT/HCPCS: 36415; 84702; 99212

== ENCOUNTER 2023-01-05 11:27 | Outpatient (REF) | payer OTHER, SELFPAY ==
[2023-01-05 13:53] LABS: HCG Quantitative 649 mIU/mL
== END 2023-01-05 11:28 | disposition home or self-care (01) ==
LOC: HO.LAB 11:27
PROVIDERS: PCP Internal Medicine; Visit Provider Obstetrics & Gynecology
DX: O00.90 Unspecified ectopic pregnancy without intrauterine pregnancy (principal)
CPT/HCPCS: 36415; 84702; 99212

== ENCOUNTER 2023-01-20 09:25 | Outpatient (REF) | payer OTHER, SELFPAY ==
[2023-01-20 11:00] LABS: HCG Quantitative 28 mIU/mL
== END 2023-01-20 09:26 | disposition home or self-care (01) ==
LOC: HO.LAB 09:25
PROVIDERS: PCP Internal Medicine; Visit Provider Obstetrics & Gynecology
DX: O00.90 Unspecified ectopic pregnancy without intrauterine pregnancy (principal)
CPT/HCPCS: 36415; 84702

== ENCOUNTER 2023-01-26 09:23 | Outpatient (REF) | payer OTHER, SELFPAY ==
[2023-01-26 11:24] LABS: HCG Quantitative 6 mIU/mL
== END 2023-01-26 09:24 | disposition home or self-care (01) ==
LOC: HO.LAB 09:23
PROVIDERS: PCP Internal Medicine; Visit Provider Obstetrics & Gynecology
DX: O00.90 Unspecified ectopic pregnancy without intrauterine pregnancy (principal)
CPT/HCPCS: 36415; 84702

== ENCOUNTER 2023-03-26 11:06 | Outpatient (REF) | payer OTHER, SELFPAY ==
[2023-03-26 12:33] LABS: HCG Quantitative < 2 mIU/mL
== END 2023-03-26 11:07 | disposition home or self-care (01) ==
LOC: HO.LAB 11:06
PROVIDERS: PCP Internal Medicine; Visit Provider Obstetrics & Gynecology
DX: O00.90 Unspecified ectopic pregnancy without intrauterine pregnancy (principal)
CPT/HCPCS: 36415; 84702

== ENCOUNTER 2023-08-16 09:35 | Emergency (ER) | payer OTHER, SELFPAY ==
[2023-08-16 09:47] VITALS: BP 130/85; PULSE 83; RESP 20; TEMP 36.8; O2SAT 100; BMI 26.9
--- NOTE | 2023-08-16 10:15 | ED_ITS ---
HPI - General Adult General Chief complaint: Nausea/Vomiting/Diarrhea Stated complaint: 8 wks preg/Dehydrated/Vomiting Time Seen by Provider: 08/16/23 10:15 Source: patient, RN notes reviewed and old records reviewed Mode of arrival: ambulatory History of Present Illness HPI narrative: 33-year-old female with a past medical history of ectopic , at 8 weeks gestation, presenting to the ED complaining of persistent nausea, vomiting, and inability to tolerate p.o. x2 weeks. Patient admits she had an ultrasound last week confirming at [place]. Reports 15-20 episodes of emesis daily, called her OBGYN however cannot get in until 07/30 in was instructed to come to the emergency department. Admits she has been taking Zofran and Pepcid at home without improvement. Also reports mild low back pain suspected secondary to sleeping/emesis, and constipation with last BM 1 week ago. Admits has been taking stool softeners, denies urge to have BM at present. Denies abdominal pain, vaginal bleeding, vaginal discharge, dysuria/hematuria, flank pain Onset (ago): week(s) Related Data Previous Rx's Medication Instructions Recorded ondansetron 4 mg disintegrating 4 mg PO Q8H PRN nausea and 12/23/22 tablet vomiting #8 tabs pyridoxine (vitamin B6) 25 mg 25 mg PO TID PRN nausea and 08/16/23 tablet vomiting #20 tabs Allergies Allergy/AdvReac Type Severity Reaction Status Date / Time Penicillins Allergy Mild RASH Verified 08/16/23 09:51 Review of Systems 2 Review of Systems: Constitutional: No Fever, No Chills, No Night Sweats, No Fatigue, No Malaise ENT/Mouth: No Ear Pain, No Nasal Congestion, No sore throat, No Rhinorrhea, No Swallowing Difficulty Eyes: No Eye Pain, No Swelling, No Redness, No Vision Changes Cardiovascular: No Chest Pain, No SOB, No Edema, No Palpitations Respiratory: No Cough, No Dyspnea Gastrointestinal: + Nausea, + Vomiting, No Diarrhea, + Constipation, No Abdominal pain Genitourinary: No vaginal bleeding, no vaginal discharge, No Dysuria, No Urinary Frequency, No Hematuria, No Flank Pain Musculoskeletal: No joint pain, No Myalgias, No Joint Swelling Skin: No Skin Lesions, No rash Neuro: No Weakness, No Dizziness, No Headache Yes all other systems are reviewed and are negative Constitutional: Constitutional: Reports as per [facility] Past Medical History Attestation statement: The following information was validated with the patient. Source: old records reviewed Medical History No known health problems Surgical History History of dilatation and curettage Social History Social History Alcohol intake: current Alcohol intake frequency: a few times a month Alcohol type: wine Patient Tobacco Use Status: Current someday Tobacco user Smoked in Last 30 Days: No Use of substances other than those prescribed or required for medical reasons: No Substance Use Type: Marijuana Advance Directives: No Patient : Yes Physical Exam ED Vital Signs: Vital Signs - 24 hr 08/16/23 09:47 08/16/23 11:33 08/16/23 13:39 Temperature 98.3 F Pulse Rate 83 85 Respiratory Rate 20 21 H 13 Blood Pressure 130/85 114/68 110/62 Pulse Oximetry 100 100 100 Oxygen Delivery Method Room Air Room Air Room Air BMI result Body Mass Index 26.9 Const General: cooperative, healthy appearing and no acute distress Orientation/consciousness: patient oriented x3 Limitations: no limitations HENMT Head: Yes normal to inspection and Yes atraumatic Ears: hearing grossly normal bilaterally General nose exam: Normal external nose present Face and sinus: Yes normal facial exam Eyes General: appearance normal, both eyes and all related structures EOM: EOMs intact bilaterally Neck Neck: Yes normal visual inspection and Yes no meningeal signs Resp Effort & Inspection: normal respiratory effort and no respiratory distress Auscultation: clear to auscultation bilaterally Cardio Rate: regular rate Heart sounds: S1 normal heart sound present and S2 normal heart sound present GI Inspection: Yes normal to inspection Palpation (GI): Soft to palpation, nontender, no guarding and not rigid General: Yes no CVA tenderness Back/Spine/Pelvis Back: no CVA tenderness Skin Rashes: no rashes Wounds: no wounds Neuro General: patient oriented x3, tone normal and no meningeal signs Cranial nerves: Yes CN's II-XII intact bilaterally Gait exam (Neuro): Normal gait present Extrem General: Yes normal to inspection Course Course Course Narrative: - leukocytosis of 17.9 > Likely reactive from nausea/ vomiting and retching - HCG 12,056, consistent with reported gestation age - initial UA contaminated > obtained repeat that has 80 ketones, improved from >=160. COVID-19 negative >1400-- patient tolerated. Bernard L and crackers in the ED without vomiting. Reported mild nausea however feels comfortable for discharge home at this time. States she has follow-up with OBGYN on 08/19 Results discussed with patient including worrisome signs and symptoms and strict return precautions, and when to return to the emergency department. They verbalized understanding and feel safe for discharge at this time. Medications Administered Discontinued Medications Generic Name Dose Route Start Last Admin Trade Name Henokq PRN Reason Stop Dose Admin Diphenhydramine HCl 50 mg 08/16/23 10:08/16/23 10:44 Diphenhydramine Hcl 50 Mg/Ml Vial IVPUSH 08/16/23 10:22 50 mg ONCE ONE Administration Famotidine 20 mg 08/16/23 10:21 08/16/23 10:45 Famotidine/Pf 20 Mg/2 Ml Vial IVPUSH 08/16/23 10:22 20 mg ONCE ONE Administration Sodium Chloride 1,000 mls @ 999 mls/hr 08/16/23 10:30 08/16/23 11:51 Ns IV 08/16/23 11:30 Infused .Q1H1M RANID Infusion Lactated Ringer's 1,000 mls @ 999 mls/hr 08/16/23 10:30 08/16/23 13:00 Lr IV 08/16/23 11:30 Infused .Q1H1M RANDI Infusion Pyridoxine HCl 25 mg 08/16/23 10:21 08/16/23 12:11 Pyridoxine Hcl (Vitamin B6) 50 Mg Tablet PO 08/16/23 10:22 25 mg ONCE ONE Administration Medical Decision Making Medical Decision Making [facility] Narrative: 33-year-old female with a past medical history of ectopic , at 8 weeks gestation, presenting to the ED complaining of persistent nausea, vomiting, and inability to tolerate p.o. x2 weeks. Also reports mild low back pain suspected secondary to sleeping/emesis, and constipation with last BM 1 week ago. On exam vital signs stable, NAD, nontoxic appearing, abdomen soft/nontender, no CVAT. Concern for hyperemesis & metabolic abnormalities/dehydration. Lower suspicion for threatened /today with reported confirmed . Low suspicion for appendicitis diverticulitis or pancreatitis without tenderness on exam. Unlikely as the, constipation likely secondary to decreased p.o. intake/empty vault Plan: Labs, UA, IVF, antiemetics, re-evaluate Please refer to course for remaining clinical decision making, interpretation of labs/imaging results, and discussions with consultants and/or family members. Differential Diagnosis Differential Diagnoses: The differential diagnosis associated with the presentation includes As above Admission/Observation Consideration of admission/observation: Escalation of care including admission/observation considered Lab Data MDM Lab Attestation statement: I reviewed the patient's lab results. 08/16/23 10:39 08/16/23 11:41 Labs: Lab Results 08/16/23 08/16/23 08/16/23 Range/Units 10:39 10:39 11:41 WBC 17.9 H (4.8-10.8) X10*3/uL RBC 4.05 L (4.20-5.50) X10*6/uL Hgb 12.3 (12.0-16.0) g/dl Hct 35.3 L (37.0-47.0) % MCV 87.2 (80.0-98.0) fL MCH 30.4 (27.0-33.0) pg MCHC 34.8 (31.0-35.0) g/dl RDW 11.7 (11.0-16.0) % Plt Count 306 (160-400) X10*3/uL MPV 9.4 (9.4-12.3) fL Immature Gran % (Auto) 0.7 H (0.0-0.4) % Neut % (Auto) 83.1 H (45-73) % Lymph % (Auto) 10.7 L (20-40) % [place] % (Auto) 5.1 (2-11) % Eos % (Auto) 0.1 (0-4) % Baso % (Auto) 0.3 (0-2) % Lymph # (Auto) 1.9 (1.2-4.9) X10*3/uL [place] # (Auto) 0.9 (0.1-1.2) X10*3/uL Eos # (Auto) 0.0 (0.0-0.4) X10*3/uL Baso # (Auto) 0.1 (0.0-0.2) X10*3/uL Abs Immat Gran (auto) 0.12 H (0.00-0.03) X10*3/uL Absolute Neuts (auto) 14.9 H (2.0-8.3) x10*3/uL Absolute Nucleated RBC 0.000 (0.0-0.012) X10*3/uL Nucleated RBC % (auto) 0.0 (0.0-0.2) /100WBC Sodium 132 L (135-145) mmol/L Potassium 4.1 (3.3-5.1) mmol/L Chloride 104 (96-108) mmol/L Carbon Dioxide 20 L (22-29) mmol/L Anion Gap 12 (12-20) BUN 9 (9-16) mg/dL Creatinine 0.66 (0.5-1.4) mg/dL Estim Creat Clear Calc 117.1 Estimated GFR > 60 Random Glucose 76 (60-115) mg/dL Calcium 8.9 (8.4-10.2) mg/dL Phosphorus 2.9 (2.7-4.5) mg/dL Magnesium 1.6 (1.6-2.6) mg/dL Total Bilirubin 0.7 (0.0-1.0) mg/dL Direct Bilirubin 0.3 (0.0-0.5) mg/dL AST 14 (5-31) U/L ALT 8 (0-31) U/L Alkaline Phosphatase 60 (39-117) U/L Total Protein 6.8 (6.5-8.0) g/dL Albumin 3.9 (3.5-5.0) g/dL Lipase 61 (8-78) U/L Beta HCG, Quant Cancelled [id number] Urine Color Dark Yellow Urine Appearance Cloudy Urine pH 6.0 (5.0-9.0) Ur Specific [place] >= 1.030 H (1.005-1.025) Urine Protein 30 (1+) H (Neg-Trace) mg/dL Urine Glucose (UA) Negative (Negative) mg/dL Urine Ketones >=160 (Negative) mg/dL Urine Blood Small (1+) H (Negative) Urine Nitrite Negative (Negative) Ur Leukocyte Esterase Trace H (Negative) Urine RBC 11-20 H (0-2) /HPF Urine WBC 6-10 H (0-5) /HPF Ur Squamous Epith Cells 11-20 (0-2) /HPF Urine Bacteria Trace (None Seen) Hyaline Casts 0-2 (0-2) /LPF COVID-19 (HERIBERTO) Negative (Negative) COVID-19 Clin Com See Note 08/16/23 Range/Units 13:41 WBC (4.8-10.8) X10*3/uL RBC (4.20-5.50) X10*6/uL Hgb (12.0-16.0) g/dl Hct (37.0-47.0) % MCV (80.0-98.0) fL MCH (27.0-33.0) pg MCHC (31.0-35.0) g/dl RDW (11.0-16.0) % Plt Count (160-400) X10*3/uL MPV (9.4-12.3) fL Immature Gran % (Auto) (0.0-0.4) % Neut % (Auto) (45-73) % Lymph % (Auto) (20-40) % [place] % (Auto) (2-11) % Eos % (Auto) (0-4) % Baso % (Auto) (0-2) % Lymph # (Auto) (1.2-4.9) X10*3/uL [place] # (Auto) (0.1-1.2) X10*3/uL Eos # (Auto) (0.0-0.4) X10*3/uL Baso # (Auto) (0.0-0.2) X10*3/uL Abs Immat Gran (auto) (0.00-0.03) X10*3/uL Absolute Neuts (auto) (2.0-8.3) x10*3/uL Absolute Nucleated RBC (0.0-0.012) X10*3/uL Nucleated RBC % (auto) (0.0-0.2) /100WBC Sodium (135-145) mmol/L Potassium (3.3-5.1) mmol/L Chloride (96-108) mmol/L Carbon Dioxide (22-29) mmol/L Anion Gap (12-20) BUN (9-16) mg/dL Creatinine (0.5-1.4) mg/dL Estim Creat Clear Calc Estimated GFR Random Glucose (60-115) mg/dL Calcium (8.4-10.2) mg/dL Phosphorus (2.7-4.5) mg/dL Magnesium (1.6-2.6) mg/dL Total Bilirubin (0.0-1.0) mg/dL Direct Bilirubin (0.0-0.5) mg/dL AST (5-31) U/L ALT (0-31) U/L Alkaline Phosphatase (39-117) U/L Total Protein (6.5-8.0) g/dL Albumin (3.5-5.0) g/dL Lipase (8-78) U/L Beta HCG, Quant Urine Color Yellow Urine Appearance Clear Urine pH 6.0 (5.0-9.0) Ur Specific [place] 1.015 (1.005-1.025) Urine Protein Negative (Neg-Trace) mg/dL Urine Glucose (UA) Negative (Negative) mg/dL Urine Ketones 80 (Negative) mg/dL Urine Blood Negative (Negative) Urine Nitrite Negative (Negative) Ur Leukocyte Esterase Negative (Negative) Urine RBC (0-2) /HPF Urine WBC (0-5) /HPF Ur Squamous Epith Cells (0-2) /HPF Urine Bacteria (None Seen) Hyaline Casts (0-2) /LPF COVID-19 (HERIBERTO) (Negative) COVID-19 Clin Com Radiology Impression Discussion of test interpretation with radiology: I have reviewed the radiologist's reading. External Record Review External record reviewed: Inpatient record, Office record, Outpatient record, Prior outpatient labs, Prior outpatient radiology, Primary care record and Outside ED record Tests considered The following testing was considered but not selected: As above Discharge Plan Discharge Clinical Impression: Nausea and vomiting during Patient Disposition: Home, Self-Care Instructions: Nausea and Vomiting in (ED) Additional Instructions: your blood work shows evidence of nausea/vomiting. Continue taking previously prescribed Zofran. In addition take vitamin B6 as prescribed. You may also take Benadryl this off-label helps with nausea and vomiting and is safe in it is very important for you to follow-up with your OBGYN make sure you are staying hydrated at home. Plenty of fluids. Practice a bland diet If you are unable to eat or drink for sick nausea/ vomiting return to the emergency department Prescriptions: New pyridoxine (vitamin B6) 25 mg tablet 25 mg PO TID PRN (Reason: nausea and vomiting) Qty: 20 0RF No Action ondansetron 4 mg tablet,disintegrating 4 mg PO Q8H PRN (Reason: nausea and vomiting) Qty: 8 0RF Referrals: [facility] [place] [facility] [Provider Group] Brian Paul III, MD [Primary Care Provider] - Interventions: ED Discharge Assessment Last Done: 08/16/23 14:23 Discharge Date/Time: 08/16/23 14:24
[2023-08-16 10:43] LABS: MANUAL DIFF FLAG NO
[2023-08-16] MEDS: 0.9 % Sodium Chloride 1,000 ML 999 ML IV (10:43)
[2023-08-16] MEDS: diphenhydrAMINE HCL 50 MG/ML VIAL IVPUSH (10:44)
[2023-08-16 10:45] LABS: Basophils Absolute Auto 0.1 X10*3/uL (0.0-0.2); Basophils Percent Auto 0.3 % (0-2); Eosinophils Percent Auto 0.1 % (0-4); Hematocrit 35.3 % (37.0-47.0); Hemoglobin 12.3 g/dl (12.0-16.0); Imm Gran Abs Auto 0.12 X10*3/uL (0.00-0.03); Imm Gran Pct Auto 0.7 % (0.0-0.4); Lymphocytes Absolute Auto 1.9 X10*3/uL (1.2-4.9); Lymphocytes Percent Auto 10.7 % (20-40); Mean Corpuscular HGB Conc 34.8 g/dl (31.0-35.0); Mean Corpuscular Hemoglobin 30.4 pg (27.0-33.0); Mean Corpuscular Volume 87.2 fL (80.0-98.0); Mean Platelet Volume 9.4 fL (9.4-12.3); Monocytes Absolute Auto 0.9 X10*3/uL (0.1-1.2); Monocytes Percent Auto 5.1 % (2-11); Neutrophils Absolute Auto 14.9 x10*3/uL (2.0-8.3); Neutrophils Percent Auto 83.1 % (45-73); Platelet Count 306 X10*3/uL (160-400); Red Blood Count 4.05 X10*6/uL (4.20-5.50); Red Cell Distribution Width 11.7 % (11.0-16.0); White Blood Count 17.9 X10*3/uL (4.8-10.8)
[2023-08-16] MEDS: Famotidine/PF 20 MG/2 ML VIAL IVPUSH (10:45)
[2023-08-16 10:48] LABS: Appearance Urine Cloudy; Color Urine Dark Yellow; Glucose Urine UA Negative (Negative); Leukocyte Esterase Urine Trace (Negative); Nitrite Urine Negative (Negative); UMIC TRIGGER UACC YES; Urine Blood Small (1+) (Negative); Urine Ketones >=160 mg/dL (Negative); Urine Protein 30 (1+) mg/dL (Neg-Trace)
[2023-08-16 11:15] LABS: COVID-19 Test Negative (Negative); IDNOW Serial# BCCEAD1C
--- NOTE | 2023-08-16 11:28 | PC.NURSE ---
delay in PO B6 medical language specialist due to waiting for pharm to bring it up
[2023-08-16 11:33] VITALS: BP 114/68; RESP 21; O2SAT 100
[2023-08-16 11:34] LABS: HCG Quantitative 12056 mIU/mL
[2023-08-16] MEDS: Lactated Ringers 1,000 ML 999 ML IV (11:48)
[2023-08-16 12:04] LABS: Anion Gap 12 (12-20)
[2023-08-16 12:09] LABS: Alanine Aminotransferase 8 U/L (0-31); Albumin Level 3.9 g/dL (3.5-5.0); Alkaline Phosphatase 60 U/L (39-117); Aspartate Amino Transferase 14 U/L (5-31); Bilirubin Direct 0.3 mg/dL (0.0-0.5); Bilirubin Total 0.7 mg/dL (0.0-1.0); Blood Urea Nitrogen 9 mg/dL (9-16); Calcium 8.9 mg/dL (8.4-10.2); Carbon Dioxide 20 mmol/L (22-29); Chloride 104 mmol/L (96-108); Creatinine Clr Calc Pharmacy 117.1; Estimated Glomerular Filt Rate > 60; Glucose Random 76 mg/dL (60-115); Lipase 61 U/L (8-78); Magnesium 1.6 mg/dL (1.6-2.6); Phosphorus 2.9 mg/dL (2.7-4.5); Potassium 4.1 mmol/L (3.3-5.1); Sodium 132 mmol/L (135-145); Total Protein 6.8 g/dL (6.5-8.0)
[2023-08-16] MEDS: Pyridoxine HCl (Vitamin B6) 50 MG TABLET 25 MG PO (12:11)
[2023-08-16 12:25] LABS: Bacteria Urine Trace (None Seen); Hyaline Casts Urine 0-2 /LPF (0-2); UACC Culture Trigger YES
[2023-08-16 12:26] LABS: Specific Gravity - Urine >= 1.030 (1.005-1.025)
[2023-08-16 13:39] VITALS: BP 110/62; PULSE 85; RESP 13; O2SAT 100
[2023-08-16 13:51] LABS: Appearance Urine Clear; Color Urine Yellow; Glucose Urine UA Negative (Negative); Leukocyte Esterase Urine Negative (Negative); Nitrite Urine Negative (Negative); Specific Gravity - Urine 1.015 (1.005-1.025); Urine Blood Negative (Negative); Urine Ketones 80 mg/dL (Negative); Urine Protein Negative (Neg-Trace)
== END 2023-08-16 14:24 | disposition home or self-care (01) ==
PROVIDERS: Physician Assistant; Emergency Provider Student in an Organized Health Care Education/Training Program; PCP Internal Medicine
DX: O21.0 Mild hyperemesis gravidarum (principal); O99.331 Smoking (tobacco) complicating pregnancy, first trimester; R19.7 Diarrhea, unspecified; M54.50 Low back pain, unspecified; E86.0 Dehydration; F17.200 Nicotine dependence, unspecified, uncomplicated; Z3A.08 8 weeks gestation of pregnancy; Z11.52 Encounter for screening for COVID-19; Z20.822 Contact with and (suspected) exposure to COVID-19; Z79.899 Other long term (current) drug therapy
CPT/HCPCS: 36415; 80048; 80076; 81001; 81003; 83690; 83735; 84100; 84702; 85025; 87086; 87635; 96361; 96374; 96375; 99284; J1200